=== PATIENT | male | born 1945 ===

== ENCOUNTER 2017-09-30 13:20 | Inpatient (IN) | payer MEDICARE, OTHER ==
[2017-09-30] MEDS ORDERED: Sodium Chloride 0.9% 1,000 ML IV ONE ×2 (13:41→16:18)
[2017-09-30] MEDS ORDERED: Sodium Chloride 0.9% 1,000 ML ONE ×2 (13:59→16:56)
[2017-09-30 14:09] LABS: BASO % 0.1 % (0.0-2.0); HEMOGLOBIN 13.1 g/dL (12.0-18.0); LYMPH # 0.5 K/uL (1.0-4.3); LYMPH % 4.4 % (20.0-40.0); MEAN CELL VOLUME 66.9 fL (80.0-94.0); MEAN CORPUSCULAR HEMOGLOBIN 21.8 pg (27.0-31.0); MEAN CORPUSCULAR HGB CONC 32.5 g/dL (33.0-37.0); MEAN PLATELET VOLUME 9.9 fL (7.2-11.7); MONO # 0.9 K/uL (0.0-0.8); MONO % 7.4 % (0.0-10.0); NEUT # 10.2 K/uL (1.8-7.0); NEUT % 88.1 % (50.0-75.0); PLATELET COUNT 152 K/uL (130-400); RBC 6.02 Mil/uL (4.40-5.90); RED CELL DISTRIBUTION WIDTH 16.7 % (11.5-14.5); WHITE BLOOD COUNT 11.6 K/uL (4.8-10.8)
--- NOTE | 2017-09-30 14:11 | RAD ---
HISTORY: SOB COMPARISON: No prior. TECHNIQUE: Chest PA and lateral FINDINGS: LUNGS: No active pulmonary disease. PLEURA: No significant pleural effusion identified. No pneumothorax apparent. CARDIOVASCULAR: Normal. OSSEOUS STRUCTURES: No significant abnormalities. VISUALIZED UPPER ABDOMEN: Normal. OTHER FINDINGS: None. IMPRESSION: No active disease.
[2017-09-30 14:27] LABS: ALB/GLOB RATIO 1.2 (1.0-2.1); ALT/SGPT 34 U/L (21-72); AST/SGOT 31 U/L (17-59); BLOOD UREA NITROGEN 32 mg/dL (9-20); CALCIUM 9.4 mg/dl (8.6-10.4); GFR AFRICAN-AMERICAN > 60; GFR NON-AFRICAN AMERICAN 50; LIPASE 100 U/L (23-300)
[2017-09-30 14:37] LABS: CK-MB 0.99 ng/mL (0.0-3.38)
[2017-09-30 14:50] LABS: BANDS 5 % (0-2); LYMPHOCYTE 8 % (20-40); MONOCYTE 5 % (0-10); NEUTROPHIL 82 % (50-75); TOTAL CELLS COUNTED 100
[2017-09-30 14:51] LABS: ANISOCYTOSIS SLIGHT; PLATELET ESTIMATE NORMAL (NORMAL)
--- NOTE | 2017-09-30 14:51 | C.PDOC ---
History Of Present Illness 72 y/o male presents to ED with c/o fever for "few days" developed after having Cystoscopy. Patient reports he is compliant with medication and denies nausea, vomiting, dysuria or any other complaints at this time. Time Seen by Provider: 09/30/17 13:34 Chief Complaint (Nursing): Fever History Per: Patient History/Exam Limitations: no limitations Onset/Duration Of Symptoms: Days Current Symptoms Are (Timing): Still Present Sick Contacts (Context): None Associated Symptoms: Fever, Chills Severity: Mild Recent travel outside of the [place]: No Past Medical History Reviewed: Historical Data, Nursing Documentation, Vital Signs Vital Signs: Last Vital Signs Temp 101.7 F H 09/30/17 15:48 Pulse 93 H 09/30/17 15:48 Resp 18 09/30/17 15:48 BP 174/85 H 09/30/17 15:48 Pulse Ox 96 09/30/17 16:06 - Medical History PMH: Benign Prostatic Hyperplasia, HTN, Hyperlipidemia Surgical History: No Surg Hx - [facility] Procedures COLONOSCOPY (07/25/13) Family History: States: No Known Family Hx - Social History Hx Tobacco Use: No Hx Alcohol Use: Yes (socially) Hx Substance Use: No - Immunization History Hx Tetanus Toxoid Vaccination: No Hx Influenza Vaccination: No Hx Pneumococcal Vaccination: No Review Of Systems Constitutional: Positive for: Fever. Negative for: Chills Cardiovascular: Negative for: Chest Pain Respiratory: Negative for: Shortness of Breath Gastrointestinal: Negative for: Nausea, Vomiting Skin: Negative for: Rash Physical Exam - Physical Exam Appears: Non-toxic, No Acute Distress Skin: Warm, Dry, No Rash Head: Atraumatic, Normacephalic Eye(s): bilateral: Normal Inspection Oral Mucosa: Moist Neck: Normal ROM, Supple Cardiovascular: Rhythm Regular Respiratory: Normal Breath Sounds, No Rales, No Rhonchi, No Wheezing Gastrointestinal/Abdominal: Soft, No Tenderness, No Guarding, No Rebound Back: No CVA Tenderness Neurological/Psych: Oriented x3, Normal Speech, Normal Cognition Gait: Unable To Assess ED Course And Treatment - Laboratory Results Result Diagrams: 09/30/17 14:03 09/30/17 14:03 Lab Interpretation: No Acute Changes ECG: Interpreted By Ga ECG Rhythm: Sinus Rhythm ECG Interpretation: Normal Rate From EC O2 Sat by Pulse Oximetry: 96 (RA) Pulse Ox Interpretation: Normal - Radiology CXR: Interpreted by Me CXR Interpretation: Yes: No Acute Disease Progress Note: Treated with tylenol for fever. IVF NSS and rocephin. Treated with motrin. On re-evaluation abdomen soft. Treated with additional NSS Reassessment Condition: Improved - Physician Consult Information Physician Contacted: Sharon Humphrey Outcome Of Conversation: admit Disposition Discussed With Dr.: Sharon Humphrey Doctor Will See Patient In The: Hospital - Disposition Disposition: HOSPITALIZED Disposition Time: 16:00 Condition: STABLE - Clinical Impression Clinical Impression: Fever, Influenza-like illness, Complicated urinary tract infection - PA / [employer] / Resident Statement MD/DO has reviewed & agrees with the documentation as recorded. - Scribe Statement The provider has reviewed the documentation as recorded by the Mimiibjoss Obrien All medical record entries made by the Mimiibjoss were at my direction and personally dictated by me. I have reviewed the chart and agree that the record accurately reflects my personal performance of the history, physical exam, medical decision making, and the department course for this patient. I have also personally directed, reviewed, and agree with the discharge instructions and disposition. Decision To Admit - Pt Status Changed To: Hospital Disposition Of: Inpatient - Admit Certification Admit to Inpatient:: After my assessment, the patient will require hospitalization for at least two midnights. This is because of the severity of symptoms shown, intensity of services needed, and/or the medical risk in this patient being treated as an outpatient. - InPatient: Physician Admission Certification:: UTI. Fever. Flu - . Bed Request Type: Regular Admitting Physician: Sharon Humphrey Patient Diagnosis: Fever, Influenza-like illness, Complicated urinary tract infection
[2017-09-30 14:57] LABS: HYPOCHROMIC SLIGHT; MICROCYTOSIS SLIGHT
[2017-09-30 15:27] LABS: SQUAMOUS EPITHIAL < 1 /hpf (0-5); URINE BACTERIA OCC (<OCC); URINE BILIRUBIN NEGATIVE (NEGATIVE); URINE BLOOD 2+ (NEGATIVE); URINE CLARITY Hazy (Clear); URINE COLOR Yellow (YELLOW); URINE GLUCOSE (UA) 1+ mg/dL (Normal); URINE LEUKOCYTE ESTERASE 3+ Leu/uL (Negative); URINE PROTEIN 2+ mg/dL (NEGATIVE); URINE UROBILINOGEN NORMAL mg/dL (0.2-1.0)
[2017-09-30] MEDS ORDERED: cefTRIAXone IV 1 gm in Dextros 50 ML IV ONE (15:30)
[2017-09-30] MEDS ORDERED: cefTRIAXone IV 1 gm in Dextros 50 ML IVPB ONE (16:20)
--- NOTE | 2017-09-30 19:24 | CP.PCM.HP ---
Past Patient History - Tetanus Immunizations Tetanus Immunization: Unknown - Past Medical History & Family History Past Medical History?: Yes - Past Social History Smoking Status: Never Smoked - CARDIAC Hx Hypertension: Yes - PULMONARY Hx Respiratory Disorders: No - NEUROLOGICAL Hx Neurological Disorder: No - HEENT Hx HEENT Problems: Yes Hx Cataracts: Yes (left eye) - RENAL Hx Chronic Kidney Disease: No - ENDOCRINE/METABOLIC Hx Endocrine Disorders: Yes (DM type II) - HEMATOLOGICAL/ONCOLOGICAL Hx Blood Disorders: No - INTEGUMENTARY Hx Dermatological Problems: No - MUSCULOSKELETAL/RHEUMATOLOGICAL Hx Musculoskeletal Disorders: Yes (osteoarthritis) Hx Falls: No - GASTROINTESTINAL Hx Gastrointestinal Disorders: No - GENITOURINARY/GYNECOLOGICAL Hx Genitourinary Disorders: Yes (BPH) Hx Prostate Problems: Yes - PSYCHIATRIC Hx Substance Use: No - SURGICAL HISTORY Hx Surgeries: Yes Hx Cataract Extraction: Yes (LEFT IOL) Other/Comment: PROSTATE BX NEG - ANESTHESIA Hx Anesthesia: Yes Hx Anesthesia Reactions: No Hx Malignant Hyperthermia: No Meds Allergies/Adverse Reactions: Allergies Allergy/AdvReac Type Severity Reaction Status Date / Time No Known Allergies Allergy Verified 07/25/13 10:26 Physical Exam - Constitutional Appears: Well - Head Exam Head Exam: ATRAUMATIC, NORMAL INSPECTION, NORMOCEPHALIC - Eye Exam Eye Exam: EOMI, Normal appearance, PERRL Pupil Exam: NORMAL ACCOMODATION, PERRL - ENT Exam ENT Exam: Mucous Membranes Moist, Normal Exam - Neck Exam Neck exam: Positive for: Normal Inspection - Respiratory Exam Respiratory Exam: Decreased Breath Sounds - Cardiovascular Exam Cardiovascular Exam: REGULAR RHYTHM, +S1, +S2 - GI/Abdominal Exam GI & Abdominal Exam: Diminished Bowel Sounds, Soft - Rectal Exam Rectal Exam: Deferred Results - Vital Signs Recent Vital Signs: Last Vital Signs Temp 99.1 F 09/30/17 18:31 Pulse 88 09/30/17 18:31 Resp 20 09/30/17 18:31 BP 167/80 H 09/30/17 18:31 Pulse Ox 98 09/30/17 18:31 - Labs Result Diagrams: 09/30/17 14:03 09/30/17 14:03 Labs: Laboratory Results - last 24 hr 09/30/17 09/30/17 09/30/17 13:44 14:03 14:03 WBC 11.6 H D RBC 6.02 H Hgb 13.1 Hct 40.3 MCV 66.9 L MCH 21.8 L MCHC 32.5 L RDW 16.7 H Plt Count 152 MPV 9.9 Neut % (Auto) 88.1 H Lymph % (Auto) 4.4 L [place] % (Auto) 7.4 Eos % (Auto) 0.0 Baso % (Auto) 0.1 Neut # (Auto) 10.2 H Lymph # (Auto) 0.5 L [place] # (Auto) 0.9 H Eos # (Auto) 0.0 Baso # (Auto) 0.0 Neutrophils % (Manual) 82 H Band Neutrophils % 5 H Lymphocytes % (Manual) 8 L Monocytes % (Manual) 5 Platelet Estimate Normal Hypochromasia (manual) Slight Anisocytosis (manual) Slight Microcytosis (manual) Slight Sodium Potassium Chloride Carbon Dioxide Anion Gap BUN Creatinine Est GFR ( Amer) Est GFR (Non-Af Amer) POC Glucose (mg/dL) 220 H Random Glucose Lactic Acid Calcium Total Bilirubin AST ALT Alkaline Phosphatase CK-MB (Mass) Troponin I Total Protein Albumin Globulin Albumin/Globulin Ratio Lipase Urine Color Urine Clarity Urine pH Ur Specific [place] Urine Protein Urine Glucose (UA) Urine Ketones Urine Blood Urine Nitrate Urine Bilirubin Urine Urobilinogen Ur Leukocyte Esterase Urine WBC (Auto) Urine RBC (Auto) Ur Squamous Epith Cells Urine Bacteria Influenza Typ A,B (EIA) Pos for influenza a H 09/30/17 09/30/17 09/30/17 14:03 14:03 15:17 WBC RBC Hgb Hct MCV MCH MCHC RDW Plt Count MPV Neut % (Auto) Lymph % (Auto) [place] % (Auto) Eos % (Auto) Baso % (Auto) Neut # (Auto) Lymph # (Auto) [place] # (Auto) Eos # (Auto) Baso # (Auto) Neutrophils % (Manual) Band Neutrophils % Lymphocytes % (Manual) Monocytes % (Manual) Platelet Estimate Hypochromasia (manual) Anisocytosis (manual) Microcytosis (manual) Sodium 140 Potassium 3.3 L Chloride 101 Carbon Dioxide 25 Anion Gap 17 BUN 32 H Creatinine 1.4 Est GFR ( Amer) > 60 Est GFR (Non-Af Amer) 50 POC Glucose (mg/dL) Random Glucose 224 H Lactic Acid 2.1 Calcium 9.4 Total Bilirubin 1.2 AST 31 ALT 34 Alkaline Phosphatase 86 CK-MB (Mass) 0.99 Troponin I 0.0410 Total Protein 7.4 Albumin 4.0 Globulin 3.4 Albumin/Globulin Ratio 1.2 Lipase 100 Urine Color Yellow Urine Clarity Hazy Urine pH 5.0 Ur Specific [place] 1.016 Urine Protein 2+ H Urine Glucose (UA) 1+ H Urine Ketones Negative Urine Blood 2+ H Urine Nitrate Negative Urine Bilirubin Negative Urine Urobilinogen Normal Ur Leukocyte Esterase 3+ H Urine WBC (Auto) 567 H Urine RBC (Auto) 42 H Ur Squamous Epith Cells < 1 Urine Bacteria Occ H Influenza Typ A,B (EIA)
[2017-09-30] MEDS ORDERED: cefTRIAXone IV 1 gm in Dextros 50 ML IVPB SCH (22:00)
[2017-09-30] MEDS ORDERED: Pneumococcal 23-Valent Vaccine IM ONE (23:25)
[2017-09-30] MEDS: Azithromycin 500 MG in Sodium Chloride 0.9% 250 ML IVPB SCH (23:26)
[2017-10-01] MEDS ORDERED: Potassium Chloride 20 mEq ER Tab PO STA (08:44)
--- NOTE | 2017-10-01 08:44 | CP.PCM.PN ---
Subjective - Date & Time of Evaluation Date of Evaluation: 10/01/17 Time of Evaluation: 08:00 - Subjective Subjective: PGY med progress note for Dr. Jonna Humphrey: Patient seen and examined at bedside this morning. He reports having fever and chills. He states that he still doesn't feel "well" but feels slightly better than yesterday. Denies SOB, chest pain, or muscle aches. He is eating well and having normal bowel movements. He admits to dysuria, frequent urination, and urinary incontinence. No new complaints today. Objective - Vital Signs/Intake and Output Vital Signs (last 24 hours): Temp Pulse Resp BP Pulse Ox 99.9 F H 81 20 157/70 H 96 10/01/17 07:00 10/01/17 07:00 10/01/17 07:00 10/01/17 07:00 10/01/17 07:00 - Medications Medications: Current Medications Colchicine (Colocrys) 0.6 mg PO DAILY [facility] Ergocalciferol (Drisdol 50,000 Intl Units Cap) 1 cap PO QWK [facility] Ferrous Sulfate (Feosol) 325 mg PO DAILY [facility] Finasteride (Proscar) 1 mg PO DAILY [facility] Glipizide (Glucotrol) 5 mg PO DAILY [facility] Heparin Sodium (Porcine) (Heparin) 5,000 units SC Q12 [facility] Home Med (Febuxostat [Uloric]) 40 mg PO DAILY [facility] Ceftriaxone Sodium (Rocephin Iv 1 Gm Duplex) 50 mls @ 100 mls/hr IVPB Q24H [facility] PRN Reason: Protocol Last Admin: 09/30/17 23:02 Dose: 100 mls/hr Sodium Chloride (Sodium Chloride 0.9%) 1,000 mls @ 75 mls/hr IV .[id number] [facility] Azithromycin 500 mg/ Sodium (Chloride) 250 mls @ 250 mls/hr IVPB Q24H [facility] PRN Reason: Protocol Last Admin: 09/30/17 23:26 Dose: 250 mls/hr Losartan Potassium (Cozaar) 100 mg PO DAILY [facility] Nebivolol (Bystolic) 20 mg PO DAILY [facility] [id number] Ethyl Esters (Lovaza) 1 gm PO DAILY [facility] Oseltamivir Phosphate (Tamiflu Cap) 75 mg PO BID [facility] PRN Reason: Protocol Stop: 10/06/17 10:01 Oxybutynin Chloride (Ditropan Tab) 5 mg PO DAILY [facility] Pantoprazole Sodium (Protonix Inj) 40 mg IVP DAILY [facility] Primidone (Mysoline) 50 mg PO DAILY [facility] Rosuvastatin Calcium (Crestor) 6 mg PO HS [facility] Last Admin: 09/30/17 23:26 Dose: 6 mg Tamsulosin HCl (Flomax) 0.4 mg PO DAILY [facility] - Labs Labs: 09/30/17 14:03 09/30/17 14:03 - Constitutional Appears: Non-toxic, No Acute Distress - Head Exam Head Exam: ATRAUMATIC, NORMAL INSPECTION - Eye Exam Eye Exam: EOMI - ENT Exam ENT Exam: Mucous Membranes Moist - Respiratory Exam Respiratory Exam: Decreased Breath Sounds, Clear to Ausculation Bilateral, NORMAL BREATHING PATTERN. absent: Respiratory Distress - Cardiovascular Exam Cardiovascular Exam: REGULAR RHYTHM, +S1, +S2 - GI/Abdominal Exam GI & Abdominal Exam: Soft. absent: Distended, Firm, Guarding, Tenderness - Extremities Exam Extremities Exam: Normal Inspection - Back Exam Back Exam: NORMAL INSPECTION - Neurological Exam Neurological Exam: Alert, Awake, Oriented x3 - Psychiatric Exam Psychiatric exam: Normal Affect, Normal Mood - Skin Skin Exam: Intact, Normal Color Assessment and Plan - Assessment and Plan (Free Text) Assessment: UTI Rocephin 1gram IVPB Q daily WBC 13.7, 19 bands, temp 99.9 Lactic Acid 2.1 UA 2+ protein, 1+ glucose, 2+ blood, 3+ LE, 567 WBC, 42 RBC f/u urine culture blood cultures 09/29 - no growth for [address] Perez, ID, consulted help appreciated Dr. Pau Walker, urology, consulted help appreciated Influenza, positive Rocephin 1gram IVPB Q daily Azithromycin 500mg IVPB Q daily Tamiflu 75mg PO BID - ends 10/06 NS at 75 cc/hour Chest X ray - no active disease Hypomagnesia Mag 1.4 Replaced BPH Flomax 0.4mg PO daily DM Glipizide 5mg PO daily accuchecks ACHS ISS Hypoglycemia protocol CKD Ergocalciferol 1 cap PO weekly (last dose 10/01) Proscar 1mg PO daily Anemia likely due to chronic disease/fe def Ferrous Sulfate 235mg PO daily HTN Bistolic 20mg PO daily Losartan 100mg PO daily HLD Lovaza 1gram PO daily Crestor 6mg PO HS Gout Colocrys 0.6mg PO daily Prophylactic Measures Protonix 40mg IVP daily Heart healthy diet SCDs Heparin 5000 U SC Q12 All management and orders per Dr. Jonna Humphrey.
[2017-10-01] MEDS ORDERED: Glucagon Recombinant 1 mg Inj IM PRN (08:47)
[2017-10-01] MEDS ORDERED: Dextrose 50% SYRINGE Inj (50 ml) IV PRN (08:47)
[2017-10-01] MEDS: (Novolin R) Insulin Human Regular 100 units/ml vial SC SCH ×4 (09:10→22:02)
[2017-10-01] MEDS: Omega-3-Acid Ethyl Esters 1 GM Cap PO SCH (09:11)
[2017-10-01] MEDS: Sodium Chloride 0.9% 1,000 ML IV SCH (09:20)
[2017-10-01] MEDS ORDERED: Ergocalciferol 50,000 Intl Units Cap PO SCH (10:00)
[2017-10-01] MEDS ORDERED: Home Med 1 UNIT (Febuxostat [Uloric] 40 MG) PO SCH (10:00)
[2017-10-01] MEDS ORDERED: Azithromycin 500 MG in Sodium Chloride 0.9% 250 ML IVPB SCH (10:00)
[2017-10-01 11:28] LABS: BASO # 0.1 K/uL (0.0-0.2); BASO % 0.4 % (0.0-2.0); HEMOGLOBIN 12.5 g/dL (12.0-18.0); LYMPH # 0.9 K/uL (1.0-4.3); LYMPH % 6.4 % (20.0-40.0); MEAN CELL VOLUME 67.7 fL (80.0-94.0); MEAN CORPUSCULAR HEMOGLOBIN 21.8 pg (27.0-31.0); MEAN CORPUSCULAR HGB CONC 32.2 g/dL (33.0-37.0); MEAN PLATELET VOLUME 9.5 fL (7.2-11.7); MONO # 0.5 K/uL (0.0-0.8); MONO % 3.8 % (0.0-10.0); NEUT # 12.3 K/uL (1.8-7.0); NEUT % 89.4 % (50.0-75.0); RBC 5.72 Mil/uL (4.40-5.90); RED CELL DISTRIBUTION WIDTH 16.8 % (11.5-14.5); WHITE BLOOD COUNT 13.7 K/uL (4.8-10.8)
[2017-10-01 11:38] LABS: PLATELET COUNT 98 K/uL (130-400)
[2017-10-01 11:40] LABS: ALBUMIN 3.2 g/dL (3.5-5.0); ALT/SGPT 32 U/L (21-72); AST/SGOT 32 U/L (17-59); BLOOD UREA NITROGEN 28 mg/dL (9-20); CALCIUM 7.9 mg/dl (8.6-10.4); GFR AFRICAN-AMERICAN > 60; GFR NON-AFRICAN AMERICAN 54
[2017-10-01 12:15] LABS: ANISOCYTOSIS SLIGHT; BANDS 19 % (0-2); LYMPHOCYTE 10 % (20-40); METAMYELOCYTE 3 % (0-0); MONOCYTE 5 % (0-10); NEUTROPHIL 63 % (50-75); OVALOCYTES SLIGHT; PLATELET ESTIMATE DECREASED (NORMAL); POIKILOCYTOSIS SLIGHT; TOTAL CELLS COUNTED 100
[2017-10-01] MEDS: Magnesium Sulfate 1 gm in D5W 1 GM/100 ML BAG IVPB SCH ×2 (13:00→13:32)
--- NOTE | 2017-10-01 18:10 | CP.PCM.CON ---
History of Present Illness - History of Present Illness History of Present Illness: 72 y/o male presents to ED with c/o fever for "few days" developed after having Cystoscopy. Patient reports he is compliant with medication and denies nausea, vomiting, dysuria or any other complaints at this time. found to have the flu c/o pain in right testicle with swelling - Medical History PMH: Benign Prostatic Hyperplasia, HTN, Hyperlipidemia Surgical History: No Surg Hx Review of Systems - Constitutional Constitutional: As Per HPI - EENT Eyes: absent: As Per HPI, Blind Spots, Blurred Vision, Change in Vision, Decreased Night Vision, Diplopia, Discharge, Dry Eye, Exophthalmos, Floaters, Irritation, Itchy Eyes, Loss of Peripheral Vision, Pain, Photophobia, Requires Corrective Lenses, Sees Flashes, Spots in Vision, Tunnel Vision, Other Visual Disturbances, Loss of Vision, Other Ears: absent: As Per HPI, Decreased Hearing, Ear Discharge, Ear Pain, Tinnitus, Abnormal Hearing, Disequilibrium, Dizziness, Other Nose/Mouth/Throat: absent: As Per HPI, Epistaxis, Nasal Congestion, Nasal Discharge, Nasal Obstruction, Nasal Trauma, Nose Pain, Post Nasal Drip, Sinus Pain, Sinus Pressure, Bleeding Gums, Change in Voice, Dental Pain, Dry Mouth, Dysphagia, Halitosis, Hoarsness, Lip Swelling, Mouth Lesions, Mouth Pain, Odynophagia, Sore Throat, Throat Swelling, Tongue Swelling, Facial Pain, Neck Pain, Neck Mass, Other - Cardiovascular Cardiovascular: absent: As Per HPI, Acrocyanosis, Chest Pain, Chest Pain at Rest , Chest Pain with Activity, Claudication, Diaphoresis, Dyspnea, Dyspnea on Exertion, Edema, Irregular Heart Rhythm, Pain Radiating to Arm/Neck/Jaw, Leg Edema, Leg Ulcers, Lightheadedness, Orthopnea, Palpitations, Paroxysmal Nocturnal Dyspnea, Pedal Edema, Radiating Pain, Rapid Heart Rate, Slow Heart Rate, Syncope, Other - Respiratory Respiratory: absent: As Per HPI, Cough, Dyspnea, Hemoptysis, Dyspnea on Exertion , Wheezing, Snoring, Stridor, Pain on Inspiration, Chest Congestion, Excessive Mucous Production, Change in Mucous Color, Pain with Coughing, Other - Gastrointestinal Gastrointestinal: absent: As Per HPI, Abdominal Pain, Belching, Bloating, Change in Bowel Habits, Change in Stool Character, Coffee Ground Emesis, Constipation, Cramping, Diarrhea, Dyspepsia, Dysphagia, Early Satiety, Excessive Flatus, Fecal Incontinence, Heartburn, Hematemesis, Hematochezia, Loose Stools, Melena, Nausea, Odynophagia, Temesmus, Vomiting, Other - Genitourinary Genitourinary: As Per HPI - Musculoskeletal Musculoskeletal: absent: As Per HPI, Abnormal Gait, Arthralgias, Atrophy, Back Pain, Deformity, Joint Swelling, Limited Range of Motion, Loss of Height, Muscle Cramps, Muscle Weakness, Myalgias, Neck Pain, Numbness, Radiating Pain into Limb, Stiffness, Tingling, Other - Integumentary Integumentary: absent: As Per HPI, Acne, Alopecia, Bleeding Lesions, Change in Hair, Change in Nails, Change in Pigmentation, Changing Lesions, Dry Skin, Erythema, Furuncle, Hirsutism, Lesions, New Lesions, Non-Healing Lesions, Photosensitivity, Pruritus, Rash, Skin Pain, Skin Ulcer, Sores, Striae, Swelling , Unusual Bruising, Wounds, Jaundice, Other - Neurological Neurological: absent: As Per HPI, Abnormal Gait, Abnormal Hearing, Abnormal Movements, Abnormal Speech, Behavioral Changes, Burning Sensations, Confusion, Convulsions, Disequilibrium, Dizziness, Numbness, Focal Weakness, Frequent Falls , Headaches, Lack of Coordination, Loss of Vision, Memory Loss, Paresthesias, Radicular Pain, Restless Legs, Sensory Deficit, Syncope, Tingling, Tremor, Vertigo, Weakness, Other Visual Disturbances, Other - Psychiatric Psychiatric: absent: As Per HPI, Abnormal Sleep Pattern, Anhedonia, Anxiety, Auditory Hallucinations, Behavioral Changes, Change in Appetite, Change in Libido, Confusion, Depression, Difficulty Concentrating, Hallucinations, Homicidal Ideation, Hopelessness, Irritability, Memory Loss, Mood Swings, Panic Attacks, Paranoia, Suicidal Ideation, Visual Hallucinations, Tactile Hallucinations, Other - Endocrine Endocrine: absent: As Per HPI, Change in Body Appearance, Change in Libido, Cold Intolorance, Deepening of Voice, Excessive Sweating, Fatigue, Flushing, Heat Intolorance, Increase in Ring/Shoe/Hat Size, Palpitations, Polydipsia, Polyphagia, Polyuria, Other - Hematologic/Lymphatic Hematologic: absent: As Per HPI, Easy Bleeding, Easy Bruising, Lymphadenopathy, Other Past Patient History - Tetanus Immunizations Tetanus Immunization: Unknown - Past Medical History & Family History Past Medical History?: Yes - Past Social History Smoking Status: Never Smoked - CARDIAC Hx Hypertension: Yes - PULMONARY Hx Respiratory Disorders: No - NEUROLOGICAL Hx Neurological Disorder: No - HEENT Hx HEENT Problems: Yes Hx Cataracts: Yes (left eye) - RENAL Hx Chronic Kidney Disease: No - ENDOCRINE/METABOLIC Hx Endocrine Disorders: Yes (DM type II) - HEMATOLOGICAL/ONCOLOGICAL Hx Blood Disorders: No - INTEGUMENTARY Hx Dermatological Problems: No - MUSCULOSKELETAL/RHEUMATOLOGICAL Hx Musculoskeletal Disorders: Yes (osteoarthritis) Hx Falls: No - GASTROINTESTINAL Hx Gastrointestinal Disorders: No - GENITOURINARY/GYNECOLOGICAL Hx Genitourinary Disorders: Yes (BPH) Hx Prostate Problems: Yes - PSYCHIATRIC Hx Substance Use: No - SURGICAL HISTORY Hx Surgeries: Yes Hx Cataract Extraction: Yes (LEFT IOL) Other/Comment: PROSTATE BX NEG - ANESTHESIA Hx Anesthesia: Yes Hx Anesthesia Reactions: No Hx Malignant Hyperthermia: No Meds Allergies/Adverse Reactions: Allergies Allergy/AdvReac Type Severity Reaction Status Date / Time No Known Allergies Allergy Verified 07/25/13 10:26 - Medications Medications: Current Medications Acetaminophen (Tylenol 325mg Tab) 650 mg PO Q6 PRN PRN Reason: Fever >100.4 F Last Admin: 10/01/17 16:19 Dose: 650 mg Colchicine (Colocrys) 0.6 mg PO DAILY [facility] Last Admin: 10/01/17 09:12 Dose: 0.6 mg Dextrose (Dextrose 50% Inj) 0 ml IV STAT PRN; Protocol PRN Reason: Hypoglycemia Protocol Dextrose (Glutose 15) 15 gm PO ONCE PRN; Protocol PRN Reason: Hypoglycemia Protocol Ergocalciferol (Drisdol 50,000 Intl Units Cap) 1 cap PO QWK [facility] Last Admin: 10/01/17 09:11 Dose: 1 cap Ferrous Sulfate (Feosol) 325 mg PO DAILY [facility] Last Admin: 10/01/17 09:12 Dose: 325 mg Finasteride (Proscar) 5 mg PO DAILY [facility] Last Admin: 10/01/17 09:18 Dose: 5 mg Glipizide (Glucotrol) 5 mg PO DAILY [facility] Last Admin: 10/01/17 09:11 Dose: 5 mg Glucagon (Glucagen Diagnostic Kit) 1 mg IM STAT PRN; Protocol PRN Reason: Hypoglycemia Protocol Heparin Sodium (Porcine) (Heparin) 5,000 units SC Q12 [facility] Last Admin: 10/01/17 09:18 Dose: 5,000 units Home Med (Febuxostat [Uloric]) 40 mg PO DAILY [facility] Ceftriaxone Sodium (Rocephin Iv 1 Gm Duplex) 50 mls @ 100 mls/hr IVPB Q24H [facility] PRN Reason: Protocol Last Admin: 09/30/17 23:02 Dose: 100 mls/hr Sodium Chloride (Sodium Chloride 0.9%) 1,000 mls @ 75 mls/hr IV .[id number] [facility] Last Admin: 10/01/17 09:20 Dose: 75 mls/hr Azithromycin 500 mg/ Sodium (Chloride) 250 mls @ 250 mls/hr IVPB Q24H [facility] PRN Reason: Protocol Last Admin: 09/30/17 23:26 Dose: 250 mls/hr Dextrose (Dextrose 5% In Water 1000 Ml) 1,000 mls @ 0 mls/hr IV .Q0M PRN; Protocol; Per Protocol PRN Reason: Hypoglycemia Protocol Insulin Human Regular (Novolin R) 0 unit SC ACHS [facility] PRN Reason: Protocol Last Admin: 10/01/17 17:48 Dose: 2 unit Losartan Potassium (Cozaar) 100 mg PO DAILY [facility] Last Admin: 10/01/17 09:12 Dose: 100 mg Nebivolol (Bystolic) 20 mg PO DAILY [facility] Last Admin: 10/01/17 09:12 Dose: 20 mg Xifti-0-[id number] Ethyl Esters (Lovaza) 1 gm PO DAILY [facility] Last Admin: 10/01/17 09:11 Dose: 1 gm Oseltamivir Phosphate (Tamiflu Cap) 75 mg PO BID [facility] PRN Reason: Protocol Stop: 10/06/17 10:01 Last Admin: 10/01/17 17:49 Dose: 75 mg Oxybutynin Chloride (Ditropan Tab) 5 mg PO DAILY [facility] Last Admin: 10/01/17 09:12 Dose: 5 mg Pantoprazole Sodium (Protonix Inj) 40 mg IVP DAILY [facility] Last Admin: 10/01/17 09:08 Dose: 40 mg Primidone (Mysoline) 50 mg PO DAILY [facility] Last Admin: 10/01/17 09:12 Dose: 50 mg Rosuvastatin Calcium (Crestor) 6 mg PO HS [facility] Last Admin: 09/30/17 23:26 Dose: 6 mg Tamsulosin HCl (Flomax) 0.4 mg PO DAILY [facility] Last Admin: 10/01/17 09:12 Dose: 0.4 mg Physical Exam - Constitutional Appears: Non-toxic, Chronically Ill - Head Exam Head Exam: ATRAUMATIC, NORMAL INSPECTION, NORMOCEPHALIC - Eye Exam Eye Exam: EOMI, PERRL, Scleral icterus - ENT Exam ENT Exam: Mucous Membranes Dry, Normal External Ear Exam, Normal Oropharynx - Neck Exam Neck exam: Negative for: Lymphadenopathy - Respiratory Exam Respiratory Exam: Decreased Breath Sounds, Rhonchi - Cardiovascular Exam Cardiovascular Exam: REGULAR RHYTHM, +S1, +S2 - GI/Abdominal Exam GI & Abdominal Exam: Diminished Bowel Sounds, Distended, Soft. absent: Tenderness - Rectal Exam Rectal Exam: Deferred - Exam Exam: Scrotal Swelling, Testicular Tenderness. absent: Uretheral Discharge, Bladder Distension - Extremities Exam Extremities exam: Negative for: pedal edema - Back Exam Back exam: absent: CVA tenderness (L), CVA tenderness (R) - Neurological Exam Neurological exam: Alert, CN II-XII Intact, Oriented x3, Reflexes Normal Results - Vital Signs Recent Vital Signs: Last Vital Signs Temp 101.8 F H 10/01/17 16:19 Pulse 68 10/01/17 16:14 Resp 20 10/01/17 16:14 BP 155/74 H 10/01/17 16:14 Pulse Ox 96 10/01/17 16:14 - Labs Result Diagrams: 10/01/17 11:21 10/01/17 11:21 Labs: Laboratory Results - last 24 hr 10/01/17 10/01/17 10/01/17 06:42 11:12 11:21 WBC 13.7 H RBC 5.72 Hgb 12.5 Hct 38.7 MCV 67.7 L MCH 21.8 L MCHC 32.2 L RDW 16.8 H Plt Count 98 L D MPV 9.5 Neut % (Auto) 89.4 H Lymph % (Auto) 6.4 L [place]house % (Auto) 3.8 Eos % (Auto) 0.0 Baso % (Auto) 0.4 Neut # (Auto) 12.3 H Lymph # (Auto) 0.9 L [place] # (Auto) 0.5 Eos # (Auto) 0.0 Baso # (Auto) 0.1 Neutrophils % (Manual) 63 Band Neutrophils % 19 H* Lymphocytes % (Manual) 10 L Monocytes % (Manual) 5 Metamyelocytes % 3 H Platelet Estimate Decreased L Poikilocytosis (manual Slight Anisocytosis (manual) Slight Ovalocytes Slight Sodium Potassium Chloride Carbon Dioxide Anion Gap BUN Creatinine Est GFR ( Amer) Est GFR (Non-Af Amer) POC Glucose (mg/dL) 277 H 326 H Random Glucose Calcium Phosphorus Magnesium Total Bilirubin AST ALT Alkaline Phosphatase Total Protein Albumin Globulin Albumin/Globulin Ratio 10/01/17 10/01/17 11:21 16:51 WBC RBC Hgb Hct MCV MCH MCHC RDW Plt Count MPV Neut % (Auto) Lymph % (Auto) [place] % (Auto) Eos % (Auto) Baso % (Auto) Neut # (Auto) Lymph # (Auto) [place] # (Auto) Eos # (Auto) Baso # (Auto) Neutrophils % (Manual) Band Neutrophils % Lymphocytes % (Manual) Monocytes % (Manual) Metamyelocytes % Platelet Estimate Poikilocytosis (manual Anisocytosis (manual) Ovalocytes Sodium 136 Potassium 3.7 Chloride 102 Carbon Dioxide 21 L Anion Gap 16 BUN 28 H Creatinine 1.3 Est GFR ( Amer) > 60 Est GFR (Non-Af Amer) 54 POC Glucose (mg/dL) 183 H Random Glucose 380 H Calcium 7.9 L Phosphorus 1.4 L Magnesium 1.4 L Total Bilirubin 0.7 AST 32 ALT 32 Alkaline Phosphatase 75 Total Protein 6.3 Albumin 3.2 L Globulin 3.1 Albumin/Globulin Ratio 1.0 Assessment & Plan (1) Complicated urinary tract infection Status: Acute (2) Fever Status: Acute (3) Influenza-like illness Status: Acute - Assessment and Plan (Free Text) Assessment: cont rx for flu and complicatted UTI await cultures add Merrem
--- NOTE | 2017-10-01 19:11 | CP.PCM.PN ---
Subjective - Date & Time of Evaluation Date of Evaluation: 10/01/17 Time of Evaluation: 10:00 - Subjective Subjective: clinically same Objective - Vital Signs/Intake and Output Vital Signs (last 24 hours): Temp Pulse Resp BP Pulse Ox 101.8 F H 68 20 155/74 H 96 10/01/17 16:19 10/01/17 16:14 10/01/17 16:14 10/01/17 16:14 10/01/17 16:14 Intake and Output: 10/01/17 10/02/17 18:59 06:59 Intake Total 887.5 Balance 887.5 - Medications Medications: Current Medications Acetaminophen (Tylenol 325mg Tab) 650 mg PO Q6 PRN PRN Reason: Fever >100.4 F Last Admin: 10/01/17 16:19 Dose: 650 mg Colchicine (Colocrys) 0.6 mg PO DAILY [facility] Last Admin: 10/01/17 09:12 Dose: 0.6 mg Dextrose (Dextrose 50% Inj) 0 ml IV STAT PRN; Protocol PRN Reason: Hypoglycemia Protocol Dextrose (Glutose 15) 15 gm PO ONCE PRN; Protocol PRN Reason: Hypoglycemia Protocol Ergocalciferol (Drisdol 50,000 Intl Units Cap) 1 cap PO QWK [facility] Last Admin: 10/01/17 09:11 Dose: 1 cap Ferrous Sulfate (Feosol) 325 mg PO DAILY [facility] Last Admin: 10/01/17 09:12 Dose: 325 mg Finasteride (Proscar) 5 mg PO DAILY [facility] Last Admin: 10/01/17 09:18 Dose: 5 mg Glipizide (Glucotrol) 5 mg PO DAILY [facility] Last Admin: 10/01/17 09:11 Dose: 5 mg Glucagon (Glucagen Diagnostic Kit) 1 mg IM STAT PRN; Protocol PRN Reason: Hypoglycemia Protocol Heparin Sodium (Porcine) (Heparin) 5,000 units SC Q12 [facility] Last Admin: 10/01/17 09:18 Dose: 5,000 units Home Med (Febuxostat [Uloric]) 40 mg PO DAILY [facility] Sodium Chloride (Sodium Chloride 0.9%) 1,000 mls @ 75 mls/hr IV .[id number] [facility] Last Admin: 10/01/17 09:20 Dose: 75 mls/hr Azithromycin 500 mg/ Sodium (Chloride) 250 mls @ 250 mls/hr IVPB Q24H [facility] PRN Reason: Protocol Last Admin: 09/30/17 23:26 Dose: 250 mls/hr Dextrose (Dextrose 5% In Water 1000 Ml) 1,000 mls @ 0 mls/hr IV .Q0M PRN; Protocol; Per Protocol PRN Reason: Hypoglycemia Protocol Meropenem 1 gm/ Sodium (Chloride) 100 mls @ 100 mls/hr IVPB Q8 [facility] PRN Reason: Protocol Insulin Human Regular (Novolin R) 0 unit SC ACHS [facility] PRN Reason: Protocol Last Admin: 10/01/17 17:48 Dose: 2 unit Losartan Potassium (Cozaar) 100 mg PO DAILY [facility] Last Admin: 10/01/17 09:12 Dose: 100 mg Nebivolol (Bystolic) 20 mg PO DAILY [facility] Last Admin: 10/01/17 09:12 Dose: 20 mg [id number] Ethyl Esters (Lovaza) 1 gm PO DAILY [facility] Last Admin: 10/01/17 09:11 Dose: 1 gm Oseltamivir Phosphate (Tamiflu Cap) 75 mg PO BID [facility] PRN Reason: Protocol Stop: 10/06/17 10:01 Last Admin: 10/01/17 17:49 Dose: 75 mg Oxybutynin Chloride (Ditropan Tab) 5 mg PO DAILY [facility] Last Admin: 10/01/17 09:12 Dose: 5 mg Pantoprazole Sodium (Protonix Inj) 40 mg IVP DAILY [facility] Last Admin: 10/01/17 09:08 Dose: 40 mg Primidone (Mysoline) 50 mg PO DAILY [facility] Last Admin: 10/01/17 09:12 Dose: 50 mg Rosuvastatin Calcium (Crestor) 6 mg PO HS [facility] Last Admin: 09/30/17 23:26 Dose: 6 mg Tamsulosin HCl (Flomax) 0.4 mg PO DAILY [facility] Last Admin: 10/01/17 09:12 Dose: 0.4 mg - Labs Labs: 10/01/17 11:21 10/01/17 11:21 - Constitutional Appears: Well - Head Exam Head Exam: ATRAUMATIC, NORMAL INSPECTION, NORMOCEPHALIC - Eye Exam Eye Exam: EOMI, Normal appearance, PERRL Pupil Exam: NORMAL ACCOMODATION, PERRL - ENT Exam ENT Exam: Mucous Membranes Moist, Normal Exam - Neck Exam Neck Exam: Full ROM, Normal Inspection. absent: Lymphadenopathy - Respiratory Exam Respiratory Exam: Decreased Breath Sounds - Cardiovascular Exam Cardiovascular Exam: REGULAR RHYTHM, +S1, +S2 - GI/Abdominal Exam GI & Abdominal Exam: Soft, Diminished Bowel Sounds - Rectal Exam Rectal Exam: Deferred
[2017-10-01] MEDS: Meropenem 1 GM in Sodium Chloride 0.9% 100 ML IVPB SCH (21:08)
[2017-10-01] MEDS: Azithromycin 500 MG in Sodium Chloride 0.9% 250 ML IVPB SCH (22:12)
[2017-10-02] MEDS: Sodium Chloride 0.9% 1,000 ML IV SCH ×2 (04:12→13:00)
[2017-10-02] MEDS: Meropenem 1 GM in Sodium Chloride 0.9% 100 ML IVPB SCH ×2 (05:20→13:37)
[2017-10-02] MEDS: (Novolin R) Insulin Human Regular 100 units/ml vial SC SCH ×4 (08:30→21:43)
[2017-10-02 08:37] LABS: BASO # 0.1 K/uL (0.0-0.2); BASO % 0.4 % (0.0-2.0); EOS % 0.1 % (0.0-4.0); HEMOGLOBIN 11.9 g/dL (12.0-18.0); LYMPH # 1.2 K/uL (1.0-4.3); LYMPH % 8.3 % (20.0-40.0); MEAN CELL VOLUME 66.6 fL (80.0-94.0); MEAN CORPUSCULAR HEMOGLOBIN 21.7 pg (27.0-31.0); MEAN CORPUSCULAR HGB CONC 32.6 g/dL (33.0-37.0); MEAN PLATELET VOLUME 9.1 fL (7.2-11.7); MONO # 0.7 K/uL (0.0-0.8); MONO % 4.8 % (0.0-10.0); NEUT # 12.7 K/uL (1.8-7.0); NEUT % 86.4 % (50.0-75.0); NRBC % 0.1 % (0.0-2.0); PLATELET COUNT 98 K/uL (130-400); RBC 5.49 Mil/uL (4.40-5.90); RED CELL DISTRIBUTION WIDTH 16.6 % (11.5-14.5); WHITE BLOOD COUNT 14.7 K/uL (4.8-10.8)
[2017-10-02 08:39] LABS: ALBUMIN 3.2 g/dL (3.5-5.0); CALCIUM 8.3 mg/dl (8.6-10.4)
--- NOTE | 2017-10-02 09:26 | CP.PCM.PN ---
Subjective - Date & Time of Evaluation Date of Evaluation: 10/02/17 Time of Evaluation: 09:11 - Subjective Subjective: Progress Note for Dr. Jonna Humphrey Patient seen and examined at bedside with son present. Patient had a fever of 100.6 overnight. Patient is tolerating diet well. He reports to have frequent urination with dark yellow urine but no burning sensation or pain. He further denies chills, headache, shortness of breath, chest pain, nausea, vomiting, or diarrhea. Objective - Vital Signs/Intake and Output Vital Signs (last 24 hours): Temp Pulse Resp BP Pulse Ox 98.6 F 64 20 157/84 H 96 10/02/17 07:22 10/02/17 07:22 10/02/17 07:22 10/02/17 07:22 10/02/17 07:22 - Medications Medications: Current Medications Acetaminophen (Tylenol 325mg Tab) 650 mg PO Q6 PRN PRN Reason: Fever >100.4 F Last Admin: 10/02/17 05:27 Dose: 650 mg Colchicine (Colocrys) 0.6 mg PO DAILY [facility] Last Admin: 10/01/17 09:12 Dose: 0.6 mg Dextrose (Dextrose 50% Inj) 0 ml IV STAT PRN; Protocol PRN Reason: Hypoglycemia Protocol Dextrose (Glutose 15) 15 gm PO ONCE PRN; Protocol PRN Reason: Hypoglycemia Protocol Ergocalciferol (Drisdol 50,000 Intl Units Cap) 1 cap PO QWK [facility] Last Admin: 10/01/17 09:11 Dose: 1 cap Ferrous Sulfate (Feosol) 325 mg PO DAILY [facility] Last Admin: 10/01/17 09:12 Dose: 325 mg Finasteride (Proscar) 5 mg PO DAILY [facility] Last Admin: 10/01/17 09:18 Dose: 5 mg Glipizide (Glucotrol) 5 mg PO DAILY [facility] Last Admin: 10/01/17 09:11 Dose: 5 mg Glucagon (Glucagen Diagnostic Kit) 1 mg IM STAT PRN; Protocol PRN Reason: Hypoglycemia Protocol Heparin Sodium (Porcine) (Heparin) 5,000 units SC Q12 [facility] Last Admin: 10/01/17 21:07 Dose: 5,000 units Home Med (Febuxostat [Uloric]) 40 mg PO DAILY [facility] Sodium Chloride (Sodium Chloride 0.9%) 1,000 mls @ 75 mls/hr IV .[id number] [facility] Last Admin: 10/02/17 04:12 Dose: 75 mls/hr Azithromycin 500 mg/ Sodium (Chloride) 250 mls @ 250 mls/hr IVPB Q24H [facility] PRN Reason: Protocol Last Admin: 10/01/17 22:12 Dose: 250 mls/hr Dextrose (Dextrose 5% In Water 1000 Ml) 1,000 mls @ 0 mls/hr IV .Q0M PRN; Protocol; Per Protocol PRN Reason: Hypoglycemia Protocol Meropenem 1 gm/ Sodium (Chloride) 100 mls @ 100 mls/hr IVPB Q8 [facility] PRN Reason: Protocol Last Admin: 10/02/17 05:20 Dose: 100 mls/hr Insulin Human Regular (Novolin R) 0 unit SC ACHS [facility] PRN Reason: Protocol Last Admin: 10/02/17 08:30 Dose: 2 unit Losartan Potassium (Cozaar) 100 mg PO DAILY [facility] Last Admin: 10/01/17 09:12 Dose: 100 mg Nebivolol (Bystolic) 20 mg PO DAILY [facility] Last Admin: 10/01/17 09:12 Dose: 20 mg [id number]-2-Ohku Ethyl Esters (Lovaza) 1 gm PO DAILY [facility] Last Admin: 10/01/17 09:11 Dose: 1 gm Oseltamivir Phosphate (Tamiflu Cap) 75 mg PO BID [facility] PRN Reason: Protocol Stop: 10/06/17 10:01 Last Admin: 10/01/17 17:49 Dose: 75 mg Oxybutynin Chloride (Ditropan Tab) 5 mg PO DAILY [facility] Last Admin: 10/01/17 09:12 Dose: 5 mg Pantoprazole Sodium (Protonix Inj) 40 mg IVP DAILY [facility] Last Admin: 10/01/17 09:08 Dose: 40 mg Potassium Chloride (K-Dur 20 Meq Er Tab) 20 meq PO ONCE ONE Stop: 10/02/17 09:09 Primidone (Mysoline) 50 mg PO DAILY [facility] Last Admin: 10/01/17 09:12 Dose: 50 mg Rosuvastatin Calcium (Crestor) 6 mg PO HS [facility] Last Admin: 10/01/17 21:07 Dose: 6 mg Tamsulosin HCl (Flomax) 0.4 mg PO DAILY [facility] Last Admin: 10/01/17 09:12 Dose: 0.4 mg - Labs Labs: 10/02/17 08:18 10/02/17 08:18 - Additional Findings Additional findings: - Constitutional Appears: Non-toxic, No Acute Distress - Head Exam Head Exam: ATRAUMATIC, NORMAL INSPECTION - Eye Exam Eye Exam: EOMI - ENT Exam ENT Exam: Mucous Membranes Moist - Respiratory Exam Respiratory Exam: Decreased Breath Sounds, Clear to Ausculation Bilateral, NORMAL BREATHING PATTERN. absent: Respiratory Distress - Cardiovascular Exam Cardiovascular Exam: REGULAR RHYTHM, +S1, +S2 - GI/Abdominal Exam GI & Abdominal Exam: Soft. absent: Distended, Firm, Guarding, Tenderness - Extremities Exam Extremities Exam: Normal Inspection - Back Exam Back Exam: NORMAL INSPECTION - Neurological Exam Neurological Exam: Alert, Awake, Oriented x3 - Psychiatric Exam Psychiatric exam: Normal Affect, Normal Mood - Skin Skin Exam: Intact, Normal Color Assessment and Plan - Assessment and Plan (Free Text) Assessment: UTI Urine culture positive for E. Coli, sensitive for Meropenem Meropenem 1gram IVPB Q8H WBC 14.7 with band of 15, temp 100.4 overnight blood cultures 09/29 - no growth for [address] Perez, ID, consulted help appreciated Dr. Pau Walker, urology, consulted help appreciated Influenza, positive Azithromycin 500mg IVPB Q daily Tamiflu 75mg PO BID - ends 10/06 NS at 75 cc/hour Chest X ray - no active disease Hypokalemia 3.3 today supplemented Hypomagnesia Improved Mag 2.0 BPH Flomax 0.4mg PO daily DM Glipizide 5mg PO daily accuchecks ACHS ISS Hypoglycemia protocol CKD Ergocalciferol 1 cap PO weekly (last dose 10/01) Proscar 1mg PO daily Anemia likely due to chronic disease/fe def Ferrous Sulfate 235mg PO daily HTN Bistolic 20mg PO daily Losartan 100mg PO daily HLD Lovaza 1gram PO daily Crestor 6mg PO HS Gout Colocrys 0.6mg PO daily Prophylactic Measures Protonix 40mg IVP daily Heart healthy diet SCDs Heparin 5000 U SC Q12 All management and orders per Dr. Jonna Humphrey.
[2017-10-02] MEDS ORDERED: Potassium Chloride 20 mEq ER Tab PO ONE (09:45)
[2017-10-02] MEDS: Omega-3-Acid Ethyl Esters 1 GM Cap PO SCH (10:01)
[2017-10-02 10:04] LABS: BANDS 15 % (0-2); LYMPHOCYTE 7 % (20-40); MONOCYTE 5 % (0-10); NEUTROPHIL 73 % (50-75); TOTAL CELLS COUNTED 100
[2017-10-02 10:05] LABS: ANISOCYTOSIS SLIGHT; PLATELET ESTIMATE DECREASED (NORMAL)
[2017-10-02 10:06] LABS: HYPOCHROMIC SLIGHT; OVALOCYTES SLIGHT; POLYCHROMIC SLIGHT
--- NOTE | 2017-10-02 10:28 | CP.PCM.PN ---
Subjective - Date & Time of Evaluation Date of Evaluation: 10/02/17 Time of Evaluation: 09:20 - Subjective Subjective: clinically same Objective - Vital Signs/Intake and Output Vital Signs (last 24 hours): Temp Pulse Resp BP Pulse Ox 98.6 F 64 20 157/84 H 96 10/02/17 07:22 10/02/17 07:22 10/02/17 07:22 10/02/17 07:22 10/02/17 07:22 - Medications Medications: Current Medications Acetaminophen (Tylenol 325mg Tab) 650 mg PO Q6 PRN PRN Reason: Fever >100.4 F Last Admin: 10/02/17 05:27 Dose: 650 mg Colchicine (Colocrys) 0.6 mg PO DAILY [facility] Last Admin: 10/02/17 10:04 Dose: 0.6 mg Dextrose (Dextrose 50% Inj) 0 ml IV STAT PRN; Protocol PRN Reason: Hypoglycemia Protocol Dextrose (Glutose 15) 15 gm PO ONCE PRN; Protocol PRN Reason: Hypoglycemia Protocol Ergocalciferol (Drisdol 50,000 Intl Units Cap) 1 cap PO QWK [facility] Last Admin: 10/01/17 09:11 Dose: 1 cap Ferrous Sulfate (Feosol) 325 mg PO DAILY [facility] Last Admin: 10/02/17 10:03 Dose: 325 mg Finasteride (Proscar) 5 mg PO DAILY [facility] Last Admin: 10/02/17 10:01 Dose: 5 mg Glipizide (Glucotrol) 5 mg PO DAILY [facility] Last Admin: 10/02/17 10:03 Dose: 5 mg Glucagon (Glucagen Diagnostic Kit) 1 mg IM STAT PRN; Protocol PRN Reason: Hypoglycemia Protocol Heparin Sodium (Porcine) (Heparin) 5,000 units SC Q12 [facility] Last Admin: 10/02/17 10:04 Dose: 5,000 units Sodium Chloride (Sodium Chloride 0.9%) 1,000 mls @ 75 mls/hr IV .[id number] [facility] Last Admin: 10/02/17 04:12 Dose: 75 mls/hr Azithromycin 500 mg/ Sodium (Chloride) 250 mls @ 250 mls/hr IVPB Q24H [facility] PRN Reason: Protocol Last Admin: 10/01/17 22:12 Dose: 250 mls/hr Dextrose (Dextrose 5% In Water 1000 Ml) 1,000 mls @ 0 mls/hr IV .Q0M PRN; Protocol; Per Protocol PRN Reason: Hypoglycemia Protocol Meropenem 1 gm/ Sodium (Chloride) 100 mls @ 100 mls/hr IVPB Q8 [facility] PRN Reason: Protocol Last Admin: 10/02/17 05:20 Dose: 100 mls/hr Insulin Human Regular (Novolin R) 0 unit SC ACHS [facility] PRN Reason: Protocol Last Admin: 10/02/17 08:30 Dose: 2 unit Losartan Potassium (Cozaar) 100 mg PO DAILY [facility] Last Admin: 10/02/17 10:03 Dose: 100 mg Nebivolol (Bystolic) 20 mg PO DAILY [facility] Last Admin: 10/02/17 10:03 Dose: 20 mg Ofvjs-6-Nvjo Ethyl Esters (Lovaza) 1 gm PO DAILY [facility] Last Admin: 10/02/17 10:01 Dose: 1 gm Oseltamivir Phosphate (Tamiflu Cap) 75 mg PO BID [facility] PRN Reason: Protocol Stop: 10/06/17 10:01 Last Admin: 10/02/17 10:02 Dose: 75 mg Oxybutynin Chloride (Ditropan Tab) 5 mg PO DAILY [facility] Last Admin: 10/02/17 10:03 Dose: 5 mg Pantoprazole Sodium (Protonix Inj) 40 mg IVP DAILY [facility] Last Admin: 10/02/17 09:57 Dose: 40 mg Primidone (Mysoline) 50 mg PO DAILY [facility] Last Admin: 10/02/17 10:04 Dose: 50 mg Rosuvastatin Calcium (Crestor) 6 mg PO HS [facility] Last Admin: 10/01/17 21:07 Dose: 6 mg Tamsulosin HCl (Flomax) 0.4 mg PO DAILY [facility] Last Admin: 10/02/17 10:01 Dose: 0.4 mg - Labs Labs: 10/02/17 08:18 10/02/17 08:18 - Constitutional Appears: Well - Head Exam Head Exam: ATRAUMATIC, NORMAL INSPECTION, NORMOCEPHALIC - Eye Exam Eye Exam: EOMI, Normal appearance, PERRL Pupil Exam: NORMAL ACCOMODATION, PERRL - ENT Exam ENT Exam: Mucous Membranes Moist, Normal Exam - Neck Exam Neck Exam: Full ROM, Normal Inspection. absent: Lymphadenopathy - Respiratory Exam Respiratory Exam: Decreased Breath Sounds - Cardiovascular Exam Cardiovascular Exam: REGULAR RHYTHM, +S1, +S2 - GI/Abdominal Exam GI & Abdominal Exam: Soft, Diminished Bowel Sounds - Rectal Exam Rectal Exam: Deferred
--- NOTE | 2017-10-02 18:12 | CP.PCM.PN ---
Subjective - Date & Time of Evaluation Date of Evaluation: 10/02/17 Time of Evaluation: 09:00 - Subjective Subjective: still febrile voiding small amounts may need galloway catheter and renal on board cultures repeated Objective - Vital Signs/Intake and Output Vital Signs (last 24 hours): Temp Pulse Resp BP Pulse Ox 101 F H 87 20 189/90 H 96 10/02/17 17:55 10/02/17 16:04 10/02/17 16:04 10/02/17 17:55 10/02/17 16:04 - Medications Medications: Current Medications Acetaminophen (Tylenol 325mg Tab) 650 mg PO Q6 PRN PRN Reason: Fever >100.4 F Last Admin: 10/02/17 17:53 Dose: 650 mg Colchicine (Colocrys) 0.6 mg PO DAILY [facility] Last Admin: 10/02/17 10:04 Dose: 0.6 mg Dextrose (Dextrose 50% Inj) 0 ml IV STAT PRN; Protocol PRN Reason: Hypoglycemia Protocol Dextrose (Glutose 15) 15 gm PO ONCE PRN; Protocol PRN Reason: Hypoglycemia Protocol Ergocalciferol (Drisdol 50,000 Intl Units Cap) 1 cap PO QWK [facility] Last Admin: 10/01/17 09:11 Dose: 1 cap Ferrous Sulfate (Feosol) 325 mg PO DAILY [facility] Last Admin: 10/02/17 10:03 Dose: 325 mg Finasteride (Proscar) 5 mg PO DAILY [facility] Last Admin: 10/02/17 10:01 Dose: 5 mg Glipizide (Glucotrol) 5 mg PO DAILY [facility] Last Admin: 10/02/17 10:03 Dose: 5 mg Glucagon (Glucagen Diagnostic Kit) 1 mg IM STAT PRN; Protocol PRN Reason: Hypoglycemia Protocol Heparin Sodium (Porcine) (Heparin) 5,000 units SC Q12 [facility] Last Admin: 10/02/17 10:04 Dose: 5,000 units Sodium Chloride (Sodium Chloride 0.9%) 1,000 mls @ 75 mls/hr IV .[id number] [facility] Last Admin: 10/02/17 13:00 Dose: Not Given Dextrose (Dextrose 5% In Water 1000 Ml) 1,000 mls @ 0 mls/hr IV .Q0M PRN; Protocol; Per Protocol PRN Reason: Hypoglycemia Protocol Cefepime HCl 1 gm/ Dextrose 50 mls @ 100 mls/hr IVPB Q12H [facility] PRN Reason: Protocol Insulin Human Regular (Novolin R) 0 unit SC ACHS [facility] PRN Reason: Protocol Last Admin: 10/02/17 16:45 Dose: Not Given Losartan Potassium (Cozaar) 100 mg PO DAILY [facility] Last Admin: 10/02/17 10:03 Dose: 100 mg Nebivolol (Bystolic) 20 mg PO DAILY [facility] Last Admin: 10/02/17 10:03 Dose: 20 mg Ankyk-5-Vlvf Ethyl Esters (Lovaza) 1 gm PO DAILY [facility] Last Admin: 10/02/17 10:01 Dose: 1 gm Oseltamivir Phosphate (Tamiflu Cap) 75 mg PO BID [facility] PRN Reason: Protocol Stop: 10/06/17 10:01 Last Admin: 10/02/17 17:50 Dose: 75 mg Oxybutynin Chloride (Ditropan Tab) 5 mg PO DAILY [facility] Last Admin: 10/02/17 10:03 Dose: 5 mg Pantoprazole Sodium (Protonix Inj) 40 mg IVP DAILY [facility] Last Admin: 10/02/17 09:57 Dose: 40 mg Primidone (Mysoline) 50 mg PO DAILY [facility] Last Admin: 10/02/17 10:04 Dose: 50 mg Rosuvastatin Calcium (Crestor) 6 mg PO HS [facility] Last Admin: 10/01/17 21:07 Dose: 6 mg Tamsulosin HCl (Flomax) 0.4 mg PO DAILY [facility] Last Admin: 10/02/17 10:01 Dose: 0.4 mg - Labs Labs: 10/02/17 08:18 10/02/17 08:18 - Constitutional Appears: Non-toxic, Chronically Ill - Head Exam Head Exam: NORMOCEPHALIC - Eye Exam Eye Exam: PERRL - ENT Exam ENT Exam: Mucous Membranes Dry - Neck Exam Neck Exam: absent: Lymphadenopathy - Respiratory Exam Respiratory Exam: Decreased Breath Sounds - Cardiovascular Exam Cardiovascular Exam: REGULAR RHYTHM - GI/Abdominal Exam GI & Abdominal Exam: Distended - Rectal Exam Rectal Exam: Deferred - Exam Exam: NORMAL INSPECTION - Extremities Exam Extremities Exam: absent: Pedal Edema - Back Exam Back Exam: absent: CVA tenderness (L), CVA tenderness (R) - Neurological Exam Neurological Exam: Alert, Awake, Oriented x3 - Psychiatric Exam Psychiatric exam: Depressed Assessment and Plan (1) Complicated urinary tract infection Status: Acute (2) Fever Status: Acute (3) Influenza-like illness Status: Acute - Assessment and Plan (Free Text) Assessment: still febrile voiding small amounts may need galloway catheter and renal on board cultures repeated
[2017-10-03] MEDS: Sodium Chloride 0.9% 1,000 ML IV SCH ×2 (02:11→12:34)
[2017-10-03 07:33] LABS: BASO # 0.1 K/uL (0.0-0.2); BASO % 0.6 % (0.0-2.0); EOS % 0.1 % (0.0-4.0); HEMOGLOBIN 11.7 g/dL (12.0-18.0); LYMPH # 1.4 K/uL (1.0-4.3); LYMPH % 13.5 % (20.0-40.0); MEAN CELL VOLUME 66.2 fL (80.0-94.0); MEAN CORPUSCULAR HGB CONC 33.2 g/dL (33.0-37.0); MEAN PLATELET VOLUME 9.1 fL (7.2-11.7); MONO % 9.6 % (0.0-10.0); NEUT # 7.7 K/uL (1.8-7.0); NEUT % 76.2 % (50.0-75.0); RBC 5.31 Mil/uL (4.40-5.90); RED CELL DISTRIBUTION WIDTH 16.6 % (11.5-14.5); WHITE BLOOD COUNT 10.1 K/uL (4.8-10.8)
[2017-10-03 07:47] LABS: ALB/GLOB RATIO 0.9 (1.0-2.1); ALT/SGPT 38 U/L (21-72); AST/SGOT 37 U/L (17-59); BLOOD UREA NITROGEN 30 mg/dL (9-20); CALCIUM 8.2 mg/dl (8.6-10.4); GFR AFRICAN-AMERICAN > 60; GFR NON-AFRICAN AMERICAN 54
[2017-10-03] MEDS: (Novolin R) Insulin Human Regular 100 units/ml vial SC SCH ×4 (08:12→21:45)
--- NOTE | 2017-10-03 10:01 | CP.PCM.CON ---
History of Present Illness - History of Present Illness History of Present Illness: consult for AMEE 72 yo H M with history of BPH, ,HTN, DL, NIDDM. Recent cystoscope this week, presents with fever and chills. Being treated for urinary sepsis as well as + for influenza. Pt with AMEE with peak creatinine to 1.7, now at 1.3. Some complaints of difficulty urinating, urine volume being evaluated, US of bladder this am. Review of Systems - Constitutional Constitutional: Chills, Fever - EENT Eyes: absent: Blurred Vision, Change in Vision Nose/Mouth/Throat: absent: Nasal Congestion, Nasal Discharge - Cardiovascular Cardiovascular: absent: Chest Pain, Edema - Gastrointestinal Gastrointestinal: Bloating. absent: Cramping - Genitourinary Genitourinary: Change in Urinary Stream, Difficulty Urinating - Neurological Neurological: absent: Headaches, Lack of Coordination - Psychiatric Psychiatric: absent: Confusion, Depression Past Patient History - Tetanus Immunizations Tetanus Immunization: Unknown - Past Medical History & Family History Past Medical History?: Yes - Past Social History Smoking Status: Never Smoked - CARDIAC Hx Hypertension: Yes - PULMONARY Hx Respiratory Disorders: No - NEUROLOGICAL Hx Neurological Disorder: No - HEENT Hx HEENT Problems: Yes Hx Cataracts: Yes (left eye) - RENAL Hx Chronic Kidney Disease: No - ENDOCRINE/METABOLIC Hx Endocrine Disorders: Yes (DM type II) - HEMATOLOGICAL/ONCOLOGICAL Hx Blood Disorders: No - INTEGUMENTARY Hx Dermatological Problems: No - MUSCULOSKELETAL/RHEUMATOLOGICAL Hx Musculoskeletal Disorders: Yes (osteoarthritis) Hx Falls: No - GASTROINTESTINAL Hx Gastrointestinal Disorders: No - GENITOURINARY/GYNECOLOGICAL Hx Genitourinary Disorders: Yes (BPH) Hx Prostate Problems: Yes - PSYCHIATRIC Hx Substance Use: No - SURGICAL HISTORY Hx Surgeries: Yes Hx Cataract Extraction: Yes (LEFT IOL) Other/Comment: PROSTATE BX NEG - ANESTHESIA Hx Anesthesia: Yes Hx Anesthesia Reactions: No Hx Malignant Hyperthermia: No Meds Allergies/Adverse Reactions: Allergies Allergy/AdvReac Type Severity Reaction Status Date / Time No Known Allergies Allergy Verified 07/25/13 10:26 - Medications Medications: Current Medications Acetaminophen (Tylenol 325mg Tab) 650 mg PO Q6 PRN PRN Reason: Fever >100.4 F Last Admin: 10/02/17 17:53 Dose: 650 mg Colchicine (Colocrys) 0.6 mg PO TTS [facility] Dextrose (Dextrose 50% Inj) 0 ml IV STAT PRN; Protocol PRN Reason: Hypoglycemia Protocol Dextrose (Glutose 15) 15 gm PO ONCE PRN; Protocol PRN Reason: Hypoglycemia Protocol Ergocalciferol (Drisdol 50,000 Intl Units Cap) 1 cap PO QWK [facility] Last Admin: 10/01/17 09:11 Dose: 1 cap Ferrous Sulfate (Feosol) 325 mg PO DAILY [facility] Last Admin: 10/02/17 10:03 Dose: 325 mg Finasteride (Proscar) 5 mg PO DAILY [facility] Last Admin: 10/02/17 10:01 Dose: 5 mg Glipizide (Glucotrol) 5 mg PO DAILY [facility] Last Admin: 10/02/17 10:03 Dose: 5 mg Glucagon (Glucagen Diagnostic Kit) 1 mg IM STAT PRN; Protocol PRN Reason: Hypoglycemia Protocol Heparin Sodium (Porcine) (Heparin) 5,000 units SC Q12 [facility] Last Admin: 10/02/17 21:51 Dose: 5,000 units Sodium Chloride (Sodium Chloride 0.9%) 1,000 mls @ 75 mls/hr IV .[id number] [facility] Last Admin: 10/03/17 02:11 Dose: 75 mls/hr Dextrose (Dextrose 5% In Water 1000 Ml) 1,000 mls @ 0 mls/hr IV .Q0M PRN; Protocol; Per Protocol PRN Reason: Hypoglycemia Protocol Cefepime HCl 1 gm/ Dextrose 50 mls @ 100 mls/hr IVPB Q12H [facility] PRN Reason: Protocol Last Admin: 10/03/17 05:52 Dose: 100 mls/hr Insulin Human Regular (Novolin R) 0 unit SC ACHS [facility] PRN Reason: Protocol Last Admin: 10/03/17 08:12 Dose: 2 unit Nebivolol (Bystolic) 20 mg PO DAILY [facility] Last Admin: 10/02/17 10:03 Dose: 20 mg Nbxix-4-Nwlw Ethyl Esters (Lovaza) 1 gm PO DAILY [facility] Last Admin: 10/02/17 10:01 Dose: 1 gm Oseltamivir Phosphate (Tamiflu Cap) 75 mg PO BID [facility] PRN Reason: Protocol Stop: 10/06/17 10:01 Last Admin: 10/02/17 17:50 Dose: 75 mg Oxybutynin Chloride (Ditropan Tab) 5 mg PO DAILY [facility] Last Admin: 10/02/17 10:03 Dose: 5 mg Pantoprazole Sodium (Protonix Inj) 40 mg IVP DAILY [facility] Last Admin: 10/02/17 09:57 Dose: 40 mg Primidone (Mysoline) 50 mg PO DAILY [facility] Last Admin: 10/02/17 10:04 Dose: 50 mg Rosuvastatin Calcium (Crestor) 5 mg PO HS [facility] Last Admin: 10/02/17 23:01 Dose: 5 mg Tamsulosin HCl (Flomax) 0.4 mg PO DAILY [facility] Last Admin: 10/02/17 10:01 Dose: 0.4 mg Physical Exam - Constitutional Appears: Non-toxic, No Acute Distress - Head Exam Head Exam: ATRAUMATIC, NORMAL INSPECTION - Eye Exam Eye Exam: EOMI, Normal appearance - ENT Exam ENT Exam: Mucous Membranes Moist - Neck Exam Neck exam: Positive for: Full Rom. Negative for: Lymphadenopathy - Respiratory Exam Respiratory Exam: Clear to Auscultation Bilateral. absent: Prolonged Expiratory Phase - Cardiovascular Exam Cardiovascular Exam: REGULAR RHYTHM. absent: Rubs - GI/Abdominal Exam GI & Abdominal Exam: Distended. absent: Tenderness - Extremities Exam Extremities exam: Negative for: pedal edema - Neurological Exam Neurological exam: Alert, Oriented x3 - Psychiatric Exam Psychiatric exam: Normal Affect, Normal Mood Results - Vital Signs Recent Vital Signs: Last Vital Signs Temp 99.7 F H 10/03/17 07:00 Pulse 66 10/03/17 07:00 Resp 20 10/03/17 07:00 BP 175/83 H 10/03/17 07:00 Pulse Ox 97 10/03/17 07:00 - Labs Result Diagrams: 10/03/17 07:20 10/03/17 07:20 Labs: Laboratory Results - last 24 hr 10/02/17 10/02/17 10/02/17 07:01 08:18 11:10 WBC RBC Hgb Hct MCV MCH MCHC RDW Plt Count MPV Neut % (Auto) Lymph % (Auto) [place] % (Auto) Eos % (Auto) Baso % (Auto) Neut # (Auto) Lymph # (Auto) [place] # (Auto) Eos # (Auto) Baso # (Auto) Neutrophils % (Manual) 73 Band Neutrophils % 15 H* Lymphocytes % (Manual) 7 L Monocytes % (Manual) 5 Platelet Estimate Decreased L Polychromasia Slight Hypochromasia (manual) Slight Anisocytosis (manual) Slight Ovalocytes Slight Sodium Potassium Chloride Carbon Dioxide Anion Gap BUN Creatinine Est GFR ( Amer) Est GFR (Non-Af Amer) POC Glucose (mg/dL) 153 H 179 H Random Glucose Calcium Total Bilirubin AST ALT Alkaline Phosphatase Total Protein Albumin Globulin Albumin/Globulin Ratio 10/02/17 10/02/17 10/03/17 16:27 21:13 06:10 WBC RBC Hgb Hct MCV MCH MCHC RDW Plt Count MPV Neut % (Auto) Lymph % (Auto) [place] % (Auto) Eos % (Auto) Baso % (Auto) Neut # (Auto) Lymph # (Auto) [place] # (Auto) Eos # (Auto) Baso # (Auto) Neutrophils % (Manual) Band Neutrophils % Lymphocytes % (Manual) Monocytes % (Manual) Platelet Estimate Polychromasia Hypochromasia (manual) Anisocytosis (manual) Ovalocytes Sodium Potassium Chloride Carbon Dioxide Anion Gap BUN Creatinine Est GFR ( Amer) Est GFR (Non-Af Amer) POC Glucose (mg/dL) 106 177 H 188 H Random Glucose Calcium Total Bilirubin AST ALT Alkaline Phosphatase Total Protein Albumin Globulin Albumin/Globulin Ratio 10/03/17 10/03/17 07:20 07:20 WBC 10.1 RBC 5.31 Hgb 11.7 L Hct 35.1 MCV 66.2 L MCH 22.0 L MCHC 33.2 RDW 16.6 H Plt Count 107 L MPV 9.1 Neut % (Auto) 76.2 H Lymph % (Auto) 13.5 L [place] % (Auto) 9.6 Eos % (Auto) 0.1 Baso % (Auto) 0.6 Neut # (Auto) 7.7 H Lymph # (Auto) 1.4 [place] # (Auto) 1.0 H Eos # (Auto) 0.0 Baso # (Auto) 0.1 Neutrophils % (Manual) Band Neutrophils % Lymphocytes % (Manual) Monocytes % (Manual) Platelet Estimate Polychromasia Hypochromasia (manual) Anisocytosis (manual) Ovalocytes Sodium 135 Potassium 3.4 L Chloride 104 Carbon Dioxide 22 Anion Gap 13 BUN 30 H Creatinine 1.3 Est GFR ( Amer) > 60 Est GFR (Non-Af Amer) 54 POC Glucose (mg/dL) Random Glucose 174 H Calcium 8.2 L Total Bilirubin 0.7 AST 37 ALT 38 Alkaline Phosphatase 113 Total Protein 6.2 L Albumin 3.0 L Globulin 3.2 Albumin/Globulin Ratio 0.9 L Assessment & Plan - Assessment and Plan (Free Text) Assessment: nonoliguric AMEE, better, complicated by sepsis syndrome, likey related hold huaarten for now decrease interval of colchicine check bladder us to evaluate check urine for protein, given underlying diabetes
[2017-10-03] MEDS: Omega-3-Acid Ethyl Esters 1 GM Cap PO SCH (10:22)
[2017-10-03 11:31] LABS: SQUAMOUS EPITHIAL < 1 /hpf (0-5); URINE BACTERIA RARE (<OCC); URINE BILIRUBIN NEGATIVE (NEGATIVE); URINE BLOOD 2+ (NEGATIVE); URINE CLARITY Clear (Clear); URINE COLOR Yellow (YELLOW); URINE GLUCOSE (UA) NORMAL (Normal); URINE LEUKOCYTE ESTERASE TRACE Leu/uL (Negative); URINE PROTEIN 3+ mg/dL (NEGATIVE); URINE UROBILINOGEN NORMAL mg/dL (0.2-1.0)
[2017-10-03] MEDS ORDERED: Potassium Chloride 20 mEq ER Tab PO ONE (15:22)
[2017-10-03] MEDS ORDERED: Potassium Chloride 10 mEq ER Tab PO SCH (16:30)
[2017-10-03] MEDS: Saccharomyces Boulardi 250 mg Cap PO SCH (17:53)
--- NOTE | 2017-10-03 18:26 | US ---
HISTORY: Renal failure COMPARISON: None. . TECHNIQUE: Sonographic evaluation of the right upper quadrant of the abdomen. . FINDINGS: LIVER: Measures 15.5 cm in length. Smooth contour though increased echogenicity of the liver parenchyma suggesting fatty infiltration however other infiltrative hepatic cellular disease process not excluded. . No mass. No intrahepatic bile duct dilatation. GALLBLADDER: Unremarkable. No gallstones. . No sonographic Fuller sign. COMMON BILE DUCT: Measures 4.0 mm. No stones. No dilatation. PANCREAS: Unremarkable as visualized. No mass. No ductal dilatation. . RIGHT KIDNEY: Measures 13.3 x 6.0 x 6.2 cm in length. Normal echogenicity. No calculus, mass, or hydronephrosis. At least a 2 cysts in the upper mid pole and mid to lower pole of present ; upper pole - midpole cyst measuring approximately 6.3 cm in greatest dimension. Midpole -lower pole cyst measuring approximately 5.2 cm in greatest dimension. LEFT KIDNEY: Measures 12.4 x 6.2 x 5.9 cm in length. Normal echogenicity. No calculus, mass, or hydronephrosis. At least a 2 cysts in the upper mid pole and mid pole of present ; upper pole - midpole cyst measuring approximately 5.6 cm in greatest dimension. Midpole -lower pole cyst measuring approximately cm 2.2 in greatest dimension. AORTA: No aneurysmal dilatation. . IVC: Unremarkable. . OTHER FINDINGS: None . . IMPRESSION: Echogenic liver likely due to fatty infiltration however other infiltrative hepatic cellular disease process not excluded. Bilateral renal cysts as described.
--- NOTE | 2017-10-03 18:28 | US ---
HISTORY: Urinary hesitancy COMPARISON: Correlation made with prior CT scan abdomen pelvis dated 03/14/2016 which imaged the urinary bladder. TECHNIQUE: Transabdominal sonographic evaluation of the urinary bladder and prostate performed. FINDINGS: Prevoid bladder volume calculated at 84 and postvoid calculated at 9.7. . Urinary bladder wall is thickened likely due to incomplete distention. No obvious discrete urine bladder wall masses. . No evidence of intraluminal urinary bladder calculi. Right ureteral jet visible. Left ureteral jet not seen. Prostate gland is enlarged with total volume a = 149.72 CC IMPRESSION: Enlarged prostate gland. Small prevoid and minimal postvoid residual as described. Urinary bladder wall is thickened likely due to incomplete distention. No definitive evidence of discrete wall masses or intraluminal calculi.
--- NOTE | 2017-10-03 19:04 | CP.PCM.PN ---
Subjective - Date & Time of Evaluation Date of Evaluation: 10/03/17 Time of Evaluation: 09:00 - Subjective Subjective: clinically same Objective - Vital Signs/Intake and Output Vital Signs (last 24 hours): Temp Pulse Resp BP Pulse Ox 99 F 59 L 20 175/83 H 99 10/03/17 15:23 10/03/17 15:23 10/03/17 15:23 10/03/17 07:00 10/03/17 15:23 Intake and Output: 10/03/17 10/04/17 18:59 06:59 Intake Total 1375 Output Total 701 Balance 674 - Medications Medications: Current Medications Acetaminophen (Tylenol 325mg Tab) 650 mg PO Q6 PRN PRN Reason: Fever >100.4 F Last Admin: 10/02/17 17:53 Dose: 650 mg Colchicine (Colocrys) 0.6 mg PO TTS [facility] Last Admin: 10/03/17 10:22 Dose: 0.6 mg Dextrose (Dextrose 50% Inj) 0 ml IV STAT PRN; Protocol PRN Reason: Hypoglycemia Protocol Dextrose (Glutose 15) 15 gm PO ONCE PRN; Protocol PRN Reason: Hypoglycemia Protocol Ergocalciferol (Drisdol 50,000 Intl Units Cap) 1 cap PO QWK [facility] Last Admin: 10/01/17 09:11 Dose: 1 cap Ferrous Sulfate (Feosol) 325 mg PO DAILY [facility] Last Admin: 10/03/17 10:21 Dose: 325 mg Finasteride (Proscar) 5 mg PO DAILY [facility] Last Admin: 10/03/17 10:21 Dose: 5 mg Glipizide (Glucotrol) 5 mg PO DAILY [facility] Last Admin: 10/03/17 10:27 Dose: 5 mg Glucagon (Glucagen Diagnostic Kit) 1 mg IM STAT PRN; Protocol PRN Reason: Hypoglycemia Protocol Heparin Sodium (Porcine) (Heparin) 5,000 units SC Q12 [facility] Last Admin: 10/03/17 10:20 Dose: 5,000 units Sodium Chloride (Sodium Chloride 0.9%) 1,000 mls @ 75 mls/hr IV .[id number] [facility] Last Admin: 10/03/17 12:34 Dose: 75 mls/hr Dextrose (Dextrose 5% In Water 1000 Ml) 1,000 mls @ 0 mls/hr IV .Q0M PRN; Protocol; Per Protocol PRN Reason: Hypoglycemia Protocol Cefepime HCl 1 gm/ Dextrose 50 mls @ 100 mls/hr IVPB Q12H [facility] PRN Reason: Protocol Last Admin: 10/03/17 17:50 Dose: 100 mls/hr Insulin Human Regular (Novolin R) 0 unit SC ACHS [facility] PRN Reason: Protocol Last Admin: 10/03/17 16:38 Dose: Not Given Nebivolol (Bystolic) 20 mg PO DAILY [facility] Last Admin: 10/03/17 10:22 Dose: 20 mg Ofyki-8-Whlt Ethyl Esters (Lovaza) 1 gm PO DAILY [facility] Last Admin: 10/03/17 10:22 Dose: 1 gm Oseltamivir Phosphate (Tamiflu Cap) 75 mg PO BID [facility] PRN Reason: Protocol Stop: 10/06/17 10:01 Last Admin: 10/03/17 17:50 Dose: 75 mg Oxybutynin Chloride (Ditropan Tab) 5 mg PO DAILY [facility] Last Admin: 10/03/17 10:22 Dose: 5 mg Pantoprazole Sodium (Protonix Inj) 40 mg IVP DAILY [facility] Last Admin: 10/03/17 10:19 Dose: 40 mg Potassium Chloride (Klor-Con 10) 10 meq PO BRK [facility] Primidone (Mysoline) 50 mg PO DAILY [facility] Last Admin: 10/03/17 10:22 Dose: 50 mg Rosuvastatin Calcium (Crestor) 5 mg PO HS [facility] Last Admin: 10/02/17 23:01 Dose: 5 mg Saccharomyces Boulardii (Florastor) 250 mg PO BID [facility] Last Admin: 10/03/17 17:53 Dose: 250 mg Tamsulosin HCl (Flomax) 0.4 mg PO DAILY [facility] Last Admin: 10/03/17 10:27 Dose: 0.4 mg - Labs Labs: 10/03/17 07:20 10/03/17 07:20 - Constitutional Appears: Well - Head Exam Head Exam: ATRAUMATIC, NORMAL INSPECTION, NORMOCEPHALIC - Eye Exam Eye Exam: EOMI, Normal appearance, PERRL Pupil Exam: NORMAL ACCOMODATION, PERRL - ENT Exam ENT Exam: Mucous Membranes Moist, Normal Exam - Neck Exam Neck Exam: Full ROM, Normal Inspection. absent: Lymphadenopathy - Respiratory Exam Respiratory Exam: Decreased Breath Sounds - Cardiovascular Exam Cardiovascular Exam: REGULAR RHYTHM, +S1, +S2 - GI/Abdominal Exam GI & Abdominal Exam: Soft, Diminished Bowel Sounds - Rectal Exam Rectal Exam: Deferred
[2017-10-04] MEDS: Sodium Chloride 0.9% 1,000 ML IV SCH ×2 (03:09→16:50)
[2017-10-04 08:18] LABS: BASO # 0.1 K/uL (0.0-0.2); BASO % 0.7 % (0.0-2.0); EOS # 0.1 K/uL (0.0-0.7); EOS % 1.4 % (0.0-4.0); HEMOGLOBIN 11.9 g/dL (12.0-18.0); LYMPH # 2.2 K/uL (1.0-4.3); LYMPH % 28.5 % (20.0-40.0); MEAN CELL VOLUME 65.9 fL (80.0-94.0); MEAN CORPUSCULAR HGB CONC 33.4 g/dL (33.0-37.0); MEAN PLATELET VOLUME 9.3 fL (7.2-11.7); MONO # 1.5 K/uL (0.0-0.8); MONO % 18.8 % (0.0-10.0); NEUT # 3.9 K/uL (1.8-7.0); NEUT % 50.6 % (50.0-75.0); RBC 5.41 Mil/uL (4.40-5.90); RED CELL DISTRIBUTION WIDTH 16.4 % (11.5-14.5); WHITE BLOOD COUNT 7.8 K/uL (4.8-10.8)
[2017-10-04] MEDS: Potassium Chloride 10 mEq ER Tab PO SCH (08:23)
[2017-10-04] MEDS: (Novolin R) Insulin Human Regular 100 units/ml vial SC SCH ×4 (08:23→21:39)
[2017-10-04 08:38] LABS: ALB/GLOB RATIO 0.9 (1.0-2.1); ALBUMIN 3.1 g/dL (3.5-5.0); ALT/SGPT 45 U/L (21-72); AST/SGOT 51 U/L (17-59); BLOOD UREA NITROGEN 29 mg/dL (9-20); CALCIUM 7.8 mg/dl (8.6-10.4); GFR AFRICAN-AMERICAN > 60; GFR NON-AFRICAN AMERICAN 54
[2017-10-04 08:39] LABS: URINE CREATININE 51.3 mg/dL
[2017-10-04] MEDS: Omega-3-Acid Ethyl Esters 1 GM Cap PO SCH (09:24)
[2017-10-04] MEDS: Saccharomyces Boulardi 250 mg Cap PO SCH ×2 (09:24→17:42)
--- NOTE | 2017-10-04 12:00 | PQF ---
PROVIDER RESPONSE TEXT: Severe Sepsis REVIEWER QUERY TEXT: Clarification of Clinical Diagnostic Findings Please clarify documentation or clinical relevance for the clinical / diagnostic findings or whether those are insignificant or unable to be further specified. ---Unable to determine -- Other, please specify The patient's Clinical Indicators include: ?72 y/o male presents to ED with c/o fever for "few days" developed after having Cystoscopy. Patient reports he is compliant with medication and denies nausea, vomiting, dysuria or any other complaints at this time?. SEVERE SEPSIS CRITERIA: Focus of infection as UTI/Influenza. FEVER: 103/103/101/101 WBC: 11.3/13.7/14.7 BAND Neutrophils: 5*/19*/15* PLT: 152/98/98. Urine Exam with Bacterias Occ. Influenza A Positive. Cefepime HCl 1 gm/ Dextrose 50 mls @ 100 mls/hr IVPB Q12H Please consider verify the following information as well match with severe sepsis criteria, consider document it if agree. Query created by: Castro Sheehan on 10/02/2017 7:14 PM Electronically signed by: Sharon HERNANDEZ 10/04/2017 11:57 AM
--- NOTE | 2017-10-04 14:10 | CP.PCM.PN ---
Subjective - Date & Time of Evaluation Date of Evaluation: 10/04/17 Time of Evaluation: 09:00 - Subjective Subjective: 72 yo H M with history of BPH, ,HTN, DL, NIDDM. Recent cystoscope this week, presents with fever and chills. Being treated for urinary sepsis as well as + for influenza. Pt with AMEE with peak creatinine to 1.7, now at 1.3. Objective - Vital Signs/Intake and Output Vital Signs (last 24 hours): Temp Pulse Resp BP Pulse Ox 98.3 F 62 20 138/75 99 10/04/17 07:00 10/04/17 07:00 10/04/17 07:00 10/04/17 09:21 10/04/17 07:00 Intake and Output: 10/04/17 10/04/17 06:59 18:59 Intake Total 1240 Output Total 500 Balance 740 - Medications Medications: Current Medications Acetaminophen (Tylenol 325mg Tab) 650 mg PO Q6 PRN PRN Reason: Fever >100.4 F Last Admin: 10/02/17 17:53 Dose: 650 mg Amlodipine Besylate (Norvasc) 10 mg PO DAILY [facility] Last Admin: 10/04/17 09:24 Dose: 10 mg Clonidine HCl (Catapres) 0.1 mg PO Q8H PRN PRN Reason: Systolic Blood Pressure Last Admin: 10/04/17 08:22 Dose: 0.1 mg Colchicine (Colocrys) 0.6 mg PO TTS [facility] Last Admin: 10/03/17 10:22 Dose: 0.6 mg Dextrose (Dextrose 50% Inj) 0 ml IV STAT PRN; Protocol PRN Reason: Hypoglycemia Protocol Dextrose (Glutose 15) 15 gm PO ONCE PRN; Protocol PRN Reason: Hypoglycemia Protocol Ergocalciferol (Drisdol 50,000 Intl Units Cap) 1 cap PO QWK [facility] Last Admin: 10/01/17 09:11 Dose: 1 cap Ferrous Sulfate (Feosol) 325 mg PO DAILY [facility] Last Admin: 10/04/17 09:24 Dose: 325 mg Finasteride (Proscar) 5 mg PO DAILY [facility] Last Admin: 10/04/17 09:24 Dose: 5 mg Glipizide (Glucotrol) 5 mg PO DAILY [facility] Last Admin: 10/04/17 09:24 Dose: 5 mg Glucagon (Glucagen Diagnostic Kit) 1 mg IM STAT PRN; Protocol PRN Reason: Hypoglycemia Protocol Heparin Sodium (Porcine) (Heparin) 5,000 units SC Q12 [facility] Last Admin: 10/04/17 09:22 Dose: 5,000 units Dextrose (Dextrose 5% In Water 1000 Ml) 1,000 mls @ 0 mls/hr IV .Q0M PRN; Protocol; Per Protocol PRN Reason: Hypoglycemia Protocol Cefepime HCl 1 gm/ Dextrose 50 mls @ 100 mls/hr IVPB Q12H [facility] PRN Reason: Protocol Last Admin: 10/04/17 05:44 Dose: 100 mls/hr Insulin Human Regular (Novolin R) 0 unit SC ACHS [facility] PRN Reason: Protocol Last Admin: 10/04/17 12:12 Dose: 2 unit Nebivolol (Bystolic) 20 mg PO DAILY [facility] Last Admin: 10/04/17 09:24 Dose: 20 mg Sffbu-2-[id number] Ethyl Esters (Lovaza) 1 gm PO DAILY [facility] Last Admin: 10/04/17 09:24 Dose: 1 gm Oseltamivir Phosphate (Tamiflu Cap) 75 mg PO BID [facility] PRN Reason: Protocol Stop: 10/06/17 10:01 Last Admin: 10/04/17 09:24 Dose: 75 mg Oxybutynin Chloride (Ditropan Tab) 5 mg PO DAILY [facility] Last Admin: 10/04/17 09:24 Dose: 5 mg Pantoprazole Sodium (Protonix Inj) 40 mg IVP DAILY [facility] Last Admin: 10/04/17 09:19 Dose: 40 mg Potassium Chloride (Klor-Con 10) 10 meq PO BRK [facility] Last Admin: 10/04/17 08:23 Dose: 10 meq Primidone (Mysoline) 50 mg PO DAILY [facility] Last Admin: 10/04/17 09:25 Dose: 50 mg Rosuvastatin Calcium (Crestor) 5 mg PO HS [facility] Last Admin: 10/03/17 21:50 Dose: 5 mg Saccharomyces Boulardii (Florastor) 250 mg PO BID [facility] Last Admin: 10/04/17 09:24 Dose: 250 mg Tamsulosin HCl (Flomax) 0.4 mg PO DAILY [facility] Last Admin: 10/04/17 09:23 Dose: 0.4 mg - Labs Labs: 10/04/17 07:50 10/04/17 08:17 - Constitutional Appears: Non-toxic, Chronically Ill - Head Exam Head Exam: NORMOCEPHALIC - Eye Exam Eye Exam: PERRL - ENT Exam ENT Exam: Mucous Membranes Dry - Neck Exam Neck Exam: absent: Lymphadenopathy - Respiratory Exam Respiratory Exam: Decreased Breath Sounds, Clear to Ausculation Bilateral - Cardiovascular Exam Cardiovascular Exam: REGULAR RHYTHM - GI/Abdominal Exam GI & Abdominal Exam: Distended, Soft - Rectal Exam Rectal Exam: Deferred - Exam Exam: NORMAL INSPECTION - Extremities Exam Extremities Exam: absent: Pedal Edema - Back Exam Back Exam: absent: CVA tenderness (L), CVA tenderness (R) - Neurological Exam Neurological Exam: Alert, Awake, Oriented x3 - Psychiatric Exam Psychiatric exam: Normal Mood - Skin Skin Exam: Dry Assessment and Plan (1) Complicated urinary tract infection Status: Acute (2) Fever Status: Acute (3) Influenza-like illness Status: Acute - Assessment and Plan (Free Text) Assessment: CONT IV ANTIBIOTICS FOLLOW UP
--- NOTE | 2017-10-04 15:34 | CP.PCM.PN ---
Subjective - Date & Time of Evaluation Date of Evaluation: 10/04/17 Time of Evaluation: 09:00 - Subjective Subjective: clinically same Objective - Vital Signs/Intake and Output Vital Signs (last 24 hours): Temp Pulse Resp BP Pulse Ox 98.3 F 62 20 138/75 99 10/04/17 07:00 10/04/17 07:00 10/04/17 07:00 10/04/17 09:21 10/04/17 07:00 Intake and Output: 10/04/17 10/04/17 06:59 18:59 Intake Total 1240 Output Total 500 Balance 740 - Medications Medications: Current Medications Acetaminophen (Tylenol 325mg Tab) 650 mg PO Q6 PRN PRN Reason: Fever >100.4 F Last Admin: 10/02/17 17:53 Dose: 650 mg Amlodipine Besylate (Norvasc) 10 mg PO DAILY [facility] Last Admin: 10/04/17 09:24 Dose: 10 mg Clonidine HCl (Catapres) 0.1 mg PO Q8H PRN PRN Reason: Systolic Blood Pressure Last Admin: 10/04/17 08:22 Dose: 0.1 mg Colchicine (Colocrys) 0.6 mg PO TTS [facility] Last Admin: 10/03/17 10:22 Dose: 0.6 mg Dextrose (Dextrose 50% Inj) 0 ml IV STAT PRN; Protocol PRN Reason: Hypoglycemia Protocol Dextrose (Glutose 15) 15 gm PO ONCE PRN; Protocol PRN Reason: Hypoglycemia Protocol Ergocalciferol (Drisdol 50,000 Intl Units Cap) 1 cap PO QWK [facility] Last Admin: 10/01/17 09:11 Dose: 1 cap Ferrous Sulfate (Feosol) 325 mg PO DAILY [facility] Last Admin: 10/04/17 09:24 Dose: 325 mg Finasteride (Proscar) 5 mg PO DAILY [facility] Last Admin: 10/04/17 09:24 Dose: 5 mg Glipizide (Glucotrol) 5 mg PO DAILY [facility] Last Admin: 10/04/17 09:24 Dose: 5 mg Glucagon (Glucagen Diagnostic Kit) 1 mg IM STAT PRN; Protocol PRN Reason: Hypoglycemia Protocol Heparin Sodium (Porcine) (Heparin) 5,000 units SC Q12 [facility] Last Admin: 10/04/17 09:22 Dose: 5,000 units Dextrose (Dextrose 5% In Water 1000 Ml) 1,000 mls @ 0 mls/hr IV .Q0M PRN; Protocol; Per Protocol PRN Reason: Hypoglycemia Protocol Cefepime HCl 1 gm/ Dextrose 50 mls @ 100 mls/hr IVPB Q12H [facility] PRN Reason: Protocol Last Admin: 10/04/17 05:44 Dose: 100 mls/hr Insulin Human Regular (Novolin R) 0 unit SC ACHS [facility] PRN Reason: Protocol Last Admin: 10/04/17 12:12 Dose: 2 unit Nebivolol (Bystolic) 20 mg PO DAILY [facility] Last Admin: 10/04/17 09:24 Dose: 20 mg Lkhrr-6-Kelf Ethyl Esters (Lovaza) 1 gm PO DAILY [facility] Last Admin: 10/04/17 09:24 Dose: 1 gm Oseltamivir Phosphate (Tamiflu Cap) 75 mg PO BID [facility] PRN Reason: Protocol Stop: 10/06/17 10:01 Last Admin: 10/04/17 09:24 Dose: 75 mg Oxybutynin Chloride (Ditropan Tab) 5 mg PO DAILY [facility] Last Admin: 10/04/17 09:24 Dose: 5 mg Pantoprazole Sodium (Protonix Inj) 40 mg IVP DAILY [facility] Last Admin: 10/04/17 09:19 Dose: 40 mg Potassium Chloride (Klor-Con 10) 10 meq PO BRK [facility] Last Admin: 10/04/17 08:23 Dose: 10 meq Primidone (Mysoline) 50 mg PO DAILY [facility] Last Admin: 10/04/17 09:25 Dose: 50 mg Rosuvastatin Calcium (Crestor) 5 mg PO HS [facility] Last Admin: 10/03/17 21:50 Dose: 5 mg Saccharomyces Boulardii (Florastor) 250 mg PO BID [facility] Last Admin: 10/04/17 09:24 Dose: 250 mg Tamsulosin HCl (Flomax) 0.4 mg PO DAILY [facility] Last Admin: 10/04/17 09:23 Dose: 0.4 mg - Labs Labs: 10/04/17 07:50 10/04/17 08:17 - Constitutional Appears: Well - Head Exam Head Exam: ATRAUMATIC, NORMAL INSPECTION, NORMOCEPHALIC - Eye Exam Eye Exam: EOMI, Normal appearance, PERRL Pupil Exam: NORMAL ACCOMODATION, PERRL - ENT Exam ENT Exam: Mucous Membranes Moist, Normal Exam - Neck Exam Neck Exam: Full ROM, Normal Inspection. absent: Lymphadenopathy - Respiratory Exam Respiratory Exam: Decreased Breath Sounds - Cardiovascular Exam Cardiovascular Exam: REGULAR RHYTHM, +S1, +S2 - GI/Abdominal Exam GI & Abdominal Exam: Soft, Diminished Bowel Sounds - Rectal Exam Rectal Exam: Deferred
[2017-10-05 00:28] VITALS: RESP 20
[2017-10-05] MEDS: Sodium Chloride 0.9% 1,000 ML IV SCH ×2 (05:30→08:22)
[2017-10-05] MEDS: (Novolin R) Insulin Human Regular 100 units/ml vial SC SCH ×4 (08:07→21:32)
[2017-10-05 08:08] LABS: BASO # 0.1 K/uL (0.0-0.2); BASO % 1.1 % (0.0-2.0); EOS # 0.2 K/uL (0.0-0.7); EOS % 3.2 % (0.0-4.0); HEMOGLOBIN 11.9 g/dL (12.0-18.0); LYMPH # 2.3 K/uL (1.0-4.3); LYMPH % 34.9 % (20.0-40.0); MEAN CELL VOLUME 65.7 fL (80.0-94.0); MEAN CORPUSCULAR HEMOGLOBIN 21.7 pg (27.0-31.0); MEAN PLATELET VOLUME 8.8 fL (7.2-11.7); MONO # 1.2 K/uL (0.0-0.8); MONO % 18.5 % (0.0-10.0); NEUT # 2.8 K/uL (1.8-7.0); NEUT % 42.3 % (50.0-75.0); NRBC % 0.1 % (0.0-2.0); RBC 5.47 Mil/uL (4.40-5.90); RED CELL DISTRIBUTION WIDTH 16.4 % (11.5-14.5); WHITE BLOOD COUNT 6.7 K/uL (4.8-10.8)
[2017-10-05 08:21] LABS: ALB/GLOB RATIO 1.1 (1.0-2.1); ALBUMIN 3.3 g/dL (3.5-5.0); ALT/SGPT 56 U/L (21-72); AST/SGOT 60 U/L (17-59); BLOOD UREA NITROGEN 27 mg/dL (9-20); CALCIUM 8.2 mg/dl (8.6-10.4); GFR AFRICAN-AMERICAN > 60; GFR NON-AFRICAN AMERICAN 60
[2017-10-05] MEDS: Potassium Chloride 10 mEq ER Tab PO SCH (08:22)
--- NOTE | 2017-10-05 09:55 | CP.PCM.PN ---
Subjective - Date & Time of Evaluation Date of Evaluation: 10/05/17 Time of Evaluation: 08:50 - Subjective Subjective: PGY2 Medicine Note for Dr. Jonna Humphrey Patient seen and examined this morning at bedside. Patient reports increased urination. He denies any pain with urination but is still experiencing dribbling. Patient's blood pressure is still elevated but he denies any headaches, difficulty with balance or visual changes. Patient's diarrhea is improving, less watery. Denies fevers, chills, nausea, vomiting, constipation, chest pain, shortness of breath, palpitations, abdominal pain. Objective - Vital Signs/Intake and Output Vital Signs (last 24 hours): Temp Pulse Resp BP Pulse Ox 98.2 F 61 20 174/90 H 99 10/05/17 07:50 10/05/17 07:50 10/05/17 07:50 10/05/17 07:50 10/05/17 07:50 Intake and Output: 10/05/17 10/05/17 06:59 18:59 Intake Total 740 850 Output Total 800 Balance 740 50 - Medications Medications: Current Medications Acetaminophen (Tylenol 325mg Tab) 650 mg PO Q6 PRN PRN Reason: Fever >100.4 F Last Admin: 10/02/17 17:53 Dose: 650 mg Amlodipine Besylate (Norvasc) 10 mg PO DAILY [facility] Last Admin: 10/04/17 09:24 Dose: 10 mg Clonidine HCl (Catapres) 0.1 mg PO Q8H PRN PRN Reason: Systolic Blood Pressure Last Admin: 10/05/17 00:18 Dose: 0.1 mg Colchicine (Colocrys) 0.6 mg PO TTS [facility] Last Admin: 10/03/17 10:22 Dose: 0.6 mg Dextrose (Dextrose 50% Inj) 0 ml IV STAT PRN; Protocol PRN Reason: Hypoglycemia Protocol Dextrose (Glutose 15) 15 gm PO ONCE PRN; Protocol PRN Reason: Hypoglycemia Protocol Ergocalciferol (Drisdol 50,000 Intl Units Cap) 1 cap PO QWK [facility] Last Admin: 10/01/17 09:11 Dose: 1 cap Ferrous Sulfate (Feosol) 325 mg PO DAILY [facility] Last Admin: 10/04/17 09:24 Dose: 325 mg Finasteride (Proscar) 5 mg PO DAILY [facility] Last Admin: 10/04/17 09:24 Dose: 5 mg Glipizide (Glucotrol) 5 mg PO DAILY [facility] Last Admin: 10/04/17 09:24 Dose: 5 mg Glucagon (Glucagen Diagnostic Kit) 1 mg IM STAT PRN; Protocol PRN Reason: Hypoglycemia Protocol Heparin Sodium (Porcine) (Heparin) 5,000 units SC Q12 [facility] Last Admin: 10/04/17 22:00 Dose: 5,000 units Dextrose (Dextrose 5% In Water 1000 Ml) 1,000 mls @ 0 mls/hr IV .Q0M PRN; Protocol; Per Protocol PRN Reason: Hypoglycemia Protocol Cefepime HCl 1 gm/ Dextrose 50 mls @ 100 mls/hr IVPB Q12H [facility] PRN Reason: Protocol Last Admin: 10/05/17 05:43 Dose: 100 mls/hr Sodium Chloride (Sodium Chloride 0.9%) 1,000 mls @ 75 mls/hr IV .[id number] [facility] Last Admin: 10/05/17 05:30 Dose: Not Given Insulin Human Regular (Novolin R) 0 unit SC ACHS [facility] PRN Reason: Protocol Last Admin: 10/05/17 08:07 Dose: Not Given Nebivolol (Bystolic) 20 mg PO DAILY [facility] Last Admin: 10/04/17 09:24 Dose: 20 mg Acovu-6-Pftr Ethyl Esters (Lovaza) 1 gm PO DAILY [facility] Last Admin: 10/04/17 09:24 Dose: 1 gm Oseltamivir Phosphate (Tamiflu Cap) 75 mg PO BID [facility] PRN Reason: Protocol Stop: 10/06/17 10:01 Last Admin: 10/04/17 17:42 Dose: 75 mg Oxybutynin Chloride (Ditropan Tab) 5 mg PO DAILY [facility] Last Admin: 10/04/17 09:24 Dose: 5 mg Pantoprazole Sodium (Protonix Inj) 40 mg IVP DAILY [facility] Last Admin: 10/04/17 09:19 Dose: 40 mg Potassium Chloride (Klor-Con 10) 10 meq PO BRK [facility] Last Admin: 10/05/17 08:22 Dose: 10 meq Primidone (Mysoline) 50 mg PO DAILY [facility] Last Admin: 10/04/17 09:25 Dose: 50 mg Rosuvastatin Calcium (Crestor) 5 mg PO HS [facility] Last Admin: 10/04/17 22:00 Dose: 5 mg Saccharomyces Boulardii (Florastor) 250 mg PO BID [facility] Last Admin: 10/04/17 17:42 Dose: 250 mg Tamsulosin HCl (Flomax) 0.4 mg PO DAILY [facility] Last Admin: 10/04/17 09:23 Dose: 0.4 mg - Labs Labs: 10/05/17 07:57 10/05/17 07:57 - Constitutional Appears: Non-toxic, No Acute Distress - Head Exam Head Exam: ATRAUMATIC, NORMOCEPHALIC - Eye Exam Eye Exam: EOMI, Normal appearance - ENT Exam ENT Exam: Mucous Membranes Moist - Respiratory Exam Respiratory Exam: NORMAL BREATHING PATTERN. absent: Accessory Muscle Use, Respiratory Distress - Cardiovascular Exam Cardiovascular Exam: REGULAR RHYTHM, +S1, +S2 - GI/Abdominal Exam GI & Abdominal Exam: Soft. absent: Distended, Firm, Guarding, Rigid, Tenderness - Extremities Exam Extremities Exam: absent: Calf Tenderness, Pedal Edema - Back Exam Back Exam: absent: CVA tenderness (L), CVA tenderness (R) - Neurological Exam Neurological Exam: Alert, Awake, CN II-XII Intact, Oriented x3 - Psychiatric Exam Psychiatric exam: Normal Affect, Normal Mood - Skin Skin Exam: Dry, Warm Assessment and Plan - Assessment and Plan (Free Text) Plan: UTI Urine culture positive for E. Coli WBC 6.7 resolved - no bands afebrile Blood cultures 09/30 - no growth at 4 days repeat blood cultures 10/02 - no growth for [address] Perez, ID, consulted help appreciated * abx per ID * Cefepime 1gm IVPB q12h started 10/02 Dr. Pau Walker, urology, consulted help appreciated * pending uro work up * f/u recs Influenza, positive afebrile Tamiflu 75mg PO BID - completed NS at 75 cc/hour - discontinued Chest X ray - no active disease discontinue contact Hypokalemia 3.4 today supplemented BPH Flomax 0.4mg PO daily DM Glipizide 5mg PO daily accuchecks ACHS ISS Hypoglycemia protocol CKD Ergocalciferol 1 cap PO weekly (last dose 10/01) Proscar 1mg PO daily Anemia likely due to chronic disease/fe def Ferrous Sulfate 235mg PO daily HTN Bistolic 20mg PO daily Losartan 100mg PO daily Amlodipine 10mg PO daily Hydralazine 25mg PO BID Clonidine 0.1mg IVP q8h prn SBP>160 HLD Lovaza 1gram PO daily Crestor 5mg PO HS Gout Colocrys 0.6mg PO daily Prophylactic Measures Protonix 40mg IVP daily Heart healthy diet SCDs Heparin 5000 U SC Q12 DISPO: Hopeful discharge home tomorrow if Urology clears patient. All management and orders per Dr. Jonna Humphrey
[2017-10-05] MEDS: Saccharomyces Boulardi 250 mg Cap PO SCH ×2 (10:02→17:29)
[2017-10-05] MEDS: Omega-3-Acid Ethyl Esters 1 GM Cap PO SCH (10:03)
--- NOTE | 2017-10-05 11:37 | CP.PCM.PN ---
Subjective - Date & Time of Evaluation Date of Evaluation: 10/05/17 Time of Evaluation: 07:00 - Subjective Subjective: tamiflu completed eval in progress Objective - Vital Signs/Intake and Output Vital Signs (last 24 hours): Temp Pulse Resp BP Pulse Ox 98.2 F 61 20 174/90 H 99 10/05/17 07:50 10/05/17 07:50 10/05/17 07:50 10/05/17 07:50 10/05/17 07:50 Intake and Output: 10/05/17 10/05/17 06:59 18:59 Intake Total 740 850 Output Total 800 Balance 740 50 - Medications Medications: Current Medications Acetaminophen (Tylenol 325mg Tab) 650 mg PO Q6 PRN PRN Reason: Fever >100.4 F Last Admin: 10/02/17 17:53 Dose: 650 mg Amlodipine Besylate (Norvasc) 10 mg PO DAILY [facility] Last Admin: 10/05/17 10:03 Dose: 10 mg Clonidine HCl (Catapres) 0.1 mg PO Q8H PRN PRN Reason: Systolic Blood Pressure Last Admin: 10/05/17 00:18 Dose: 0.1 mg Colchicine (Colocrys) 0.6 mg PO TTS [facility] Last Admin: 10/03/17 10:22 Dose: 0.6 mg Dextrose (Dextrose 50% Inj) 0 ml IV STAT PRN; Protocol PRN Reason: Hypoglycemia Protocol Dextrose (Glutose 15) 15 gm PO ONCE PRN; Protocol PRN Reason: Hypoglycemia Protocol Ergocalciferol (Drisdol 50,000 Intl Units Cap) 1 cap PO QWK [facility] Last Admin: 10/01/17 09:11 Dose: 1 cap Ferrous Sulfate (Feosol) 325 mg PO DAILY [facility] Last Admin: 10/05/17 10:03 Dose: 325 mg Finasteride (Proscar) 5 mg PO DAILY [facility] Last Admin: 10/05/17 10:35 Dose: 5 mg Glipizide (Glucotrol) 5 mg PO DAILY [facility] Last Admin: 10/05/17 10:02 Dose: 5 mg Glucagon (Glucagen Diagnostic Kit) 1 mg IM STAT PRN; Protocol PRN Reason: Hypoglycemia Protocol Heparin Sodium (Porcine) (Heparin) 5,000 units SC Q12 [facility] Last Admin: 10/05/17 10:02 Dose: 5,000 units Dextrose (Dextrose 5% In Water 1000 Ml) 1,000 mls @ 0 mls/hr IV .Q0M PRN; Protocol; Per Protocol PRN Reason: Hypoglycemia Protocol Cefepime HCl 1 gm/ Dextrose 50 mls @ 100 mls/hr IVPB Q12H [facility] PRN Reason: Protocol Last Admin: 10/05/17 05:43 Dose: 100 mls/hr Sodium Chloride (Sodium Chloride 0.9%) 1,000 mls @ 75 mls/hr IV .[id number] [facility] Last Admin: 10/05/17 05:30 Dose: Not Given Insulin Human Regular (Novolin R) 0 unit SC ACHS [facility] PRN Reason: Protocol Last Admin: 10/05/17 08:07 Dose: Not Given Nebivolol (Bystolic) 20 mg PO DAILY [facility] Last Admin: 10/05/17 10:03 Dose: 20 mg Uigvp-5-Iyfq Ethyl Esters (Lovaza) 1 gm PO DAILY [facility] Last Admin: 10/05/17 10:03 Dose: 1 gm Oxybutynin Chloride (Ditropan Tab) 5 mg PO DAILY [facility] Last Admin: 10/05/17 10:03 Dose: 5 mg Pantoprazole Sodium (Protonix Inj) 40 mg IVP DAILY [facility] Last Admin: 10/05/17 10:02 Dose: 40 mg Potassium Chloride (Klor-Con 10) 10 meq PO BRK [facility] Last Admin: 10/05/17 08:22 Dose: 10 meq Primidone (Mysoline) 50 mg PO DAILY [facility] Last Admin: 10/05/17 10:03 Dose: 50 mg Rosuvastatin Calcium (Crestor) 5 mg PO HS [facility] Last Admin: 10/04/17 22:00 Dose: 5 mg Saccharomyces Boulardii (Florastor) 250 mg PO BID [facility] Last Admin: 10/05/17 10:02 Dose: 250 mg Tamsulosin HCl (Flomax) 0.4 mg PO DAILY [facility] Last Admin: 10/05/17 10:02 Dose: 0.4 mg - Labs Labs: 10/05/17 07:57 10/05/17 07:57 - Constitutional Appears: Non-toxic - Head Exam Head Exam: NORMOCEPHALIC - Eye Exam Eye Exam: PERRL - ENT Exam ENT Exam: Mucous Membranes Dry - Neck Exam Neck Exam: absent: Lymphadenopathy - Respiratory Exam Respiratory Exam: Decreased Breath Sounds - Cardiovascular Exam Cardiovascular Exam: REGULAR RHYTHM - GI/Abdominal Exam GI & Abdominal Exam: Distended Assessment and Plan (1) Complicated urinary tract infection Status: Acute (2) Fever Status: Acute (3) Influenza-like illness Status: Acute
--- NOTE | 2017-10-05 11:48 | CP.PCM.PN ---
Subjective - Date & Time of Evaluation Date of Evaluation: 10/05/17 Time of Evaluation: 11:45 - Subjective Subjective: on treatment for UTI c/o urinary frequency afebrile, HTN elevated less diarrhea not dyspneic AMEE improved Objective - Vital Signs/Intake and Output Vital Signs (last 24 hours): Temp Pulse Resp BP Pulse Ox 98.2 F 61 20 174/90 H 99 10/05/17 07:50 10/05/17 07:50 10/05/17 07:50 10/05/17 07:50 10/05/17 07:50 Intake and Output: 10/05/17 10/05/17 06:59 18:59 Intake Total 740 850 Output Total 800 Balance 740 50 - Medications Medications: Current Medications Acetaminophen (Tylenol 325mg Tab) 650 mg PO Q6 PRN PRN Reason: Fever >100.4 F Last Admin: 10/02/17 17:53 Dose: 650 mg Amlodipine Besylate (Norvasc) 10 mg PO DAILY [facility] Last Admin: 10/05/17 10:03 Dose: 10 mg Clonidine HCl (Catapres) 0.1 mg PO Q8H PRN PRN Reason: Systolic Blood Pressure Last Admin: 10/05/17 00:18 Dose: 0.1 mg Colchicine (Colocrys) 0.6 mg PO TTS [facility] Last Admin: 10/03/17 10:22 Dose: 0.6 mg Dextrose (Dextrose 50% Inj) 0 ml IV STAT PRN; Protocol PRN Reason: Hypoglycemia Protocol Dextrose (Glutose 15) 15 gm PO ONCE PRN; Protocol PRN Reason: Hypoglycemia Protocol Ergocalciferol (Drisdol 50,000 Intl Units Cap) 1 cap PO QWK [facility] Last Admin: 10/01/17 09:11 Dose: 1 cap Ferrous Sulfate (Feosol) 325 mg PO DAILY [facility] Last Admin: 10/05/17 10:03 Dose: 325 mg Finasteride (Proscar) 5 mg PO DAILY [facility] Last Admin: 10/05/17 10:35 Dose: 5 mg Glipizide (Glucotrol) 5 mg PO DAILY [facility] Last Admin: 10/05/17 10:02 Dose: 5 mg Glucagon (Glucagen Diagnostic Kit) 1 mg IM STAT PRN; Protocol PRN Reason: Hypoglycemia Protocol Heparin Sodium (Porcine) (Heparin) 5,000 units SC Q12 [facility] Last Admin: 10/05/17 10:02 Dose: 5,000 units Dextrose (Dextrose 5% In Water 1000 Ml) 1,000 mls @ 0 mls/hr IV .Q0M PRN; Protocol; Per Protocol PRN Reason: Hypoglycemia Protocol Cefepime HCl 1 gm/ Dextrose 50 mls @ 100 mls/hr IVPB Q12H [facility] PRN Reason: Protocol Last Admin: 10/05/17 05:43 Dose: 100 mls/hr Sodium Chloride (Sodium Chloride 0.9%) 1,000 mls @ 75 mls/hr IV .[id number] [facility] Last Admin: 10/05/17 05:30 Dose: Not Given Insulin Human Regular (Novolin R) 0 unit SC ACHS [facility] PRN Reason: Protocol Last Admin: 10/05/17 08:07 Dose: Not Given Nebivolol (Bystolic) 20 mg PO DAILY [facility] Last Admin: 10/05/17 10:03 Dose: 20 mg Vsjam-2-Zjcr Ethyl Esters (Lovaza) 1 gm PO DAILY [facility] Last Admin: 10/05/17 10:03 Dose: 1 gm Oxybutynin Chloride (Ditropan Tab) 5 mg PO DAILY [facility] Last Admin: 10/05/17 10:03 Dose: 5 mg Pantoprazole Sodium (Protonix Inj) 40 mg IVP DAILY [facility] Last Admin: 10/05/17 10:02 Dose: 40 mg Potassium Chloride (Klor-Con 10) 10 meq PO BRK [facility] Last Admin: 10/05/17 08:22 Dose: 10 meq Primidone (Mysoline) 50 mg PO DAILY [facility] Last Admin: 10/05/17 10:03 Dose: 50 mg Rosuvastatin Calcium (Crestor) 5 mg PO HS [facility] Last Admin: 10/04/17 22:00 Dose: 5 mg Saccharomyces Boulardii (Florastor) 250 mg PO BID [facility] Last Admin: 10/05/17 10:02 Dose: 250 mg Tamsulosin HCl (Flomax) 0.4 mg PO DAILY [facility] Last Admin: 10/05/17 10:02 Dose: 0.4 mg - Labs Labs: 10/05/17 07:57 10/05/17 07:57 - Constitutional Appears: In Acute Distress, Chronically Ill - Head Exam Head Exam: ATRAUMATIC, NORMAL INSPECTION - Eye Exam Eye Exam: EOMI, Normal appearance - Neck Exam Neck Exam: Normal Inspection. absent: Tenderness - Respiratory Exam Respiratory Exam: Clear to Ausculation Bilateral, NORMAL BREATHING PATTERN - Cardiovascular Exam Cardiovascular Exam: REGULAR RHYTHM, +S1 - GI/Abdominal Exam GI & Abdominal Exam: Soft. absent: Tenderness - Extremities Exam Extremities Exam: Normal Inspection. absent: Tenderness - Neurological Exam Neurological Exam: Awake, CN II-XII Intact - Skin Skin Exam: Dry, Warm Assessment and Plan (1) Complicated urinary tract infection Status: Acute (2) Influenza-like illness Status: Acute (3) Hypertension Status: Acute - Assessment and Plan (Free Text) Plan: replete K increase BP control follow up lytes
[2017-10-05] MEDS ORDERED: Potassium Chloride 20 mEq/15 ml LIQ UD PO ONE (12:00)
[2017-10-05] MEDS ORDERED: Sodium Chloride 0.9% 1,000 ML IV SCH (14:07)
--- NOTE | 2017-10-05 17:12 | CP.PCM.PN ---
Subjective - Date & Time of Evaluation Date of Evaluation: 10/05/17 Time of Evaluation: 08:00 - Subjective Subjective: clinically same Objective - Vital Signs/Intake and Output Vital Signs (last 24 hours): Temp Pulse Resp BP Pulse Ox 98.2 F 61 20 170/75 H 99 10/05/17 07:50 10/05/17 07:50 10/05/17 07:50 10/05/17 12:20 10/05/17 07:50 Intake and Output: 10/05/17 10/05/17 06:59 18:59 Intake Total 740 1950 Output Total 800 Balance 740 1150 - Medications Medications: Current Medications Acetaminophen (Tylenol 325mg Tab) 650 mg PO Q6 PRN PRN Reason: Fever >100.4 F Last Admin: 10/02/17 17:53 Dose: 650 mg Amlodipine Besylate (Norvasc) 10 mg PO DAILY [facility] Last Admin: 10/05/17 10:03 Dose: 10 mg Clonidine HCl (Catapres) 0.1 mg PO Q8H PRN PRN Reason: Systolic Blood Pressure Last Admin: 10/05/17 12:22 Dose: 0.1 mg Colchicine (Colocrys) 0.6 mg PO TTS [facility] Last Admin: 10/03/17 10:22 Dose: 0.6 mg Dextrose (Dextrose 50% Inj) 0 ml IV STAT PRN; Protocol PRN Reason: Hypoglycemia Protocol Dextrose (Glutose 15) 15 gm PO ONCE PRN; Protocol PRN Reason: Hypoglycemia Protocol Ergocalciferol (Drisdol 50,000 Intl Units Cap) 1 cap PO QWK [facility] Last Admin: 10/01/17 09:11 Dose: 1 cap Ferrous Sulfate (Feosol) 325 mg PO DAILY [facility] Last Admin: 10/05/17 10:03 Dose: 325 mg Finasteride (Proscar) 5 mg PO DAILY [facility] Last Admin: 10/05/17 10:35 Dose: 5 mg Glipizide (Glucotrol) 5 mg PO DAILY [facility] Last Admin: 10/05/17 10:02 Dose: 5 mg Glucagon (Glucagen Diagnostic Kit) 1 mg IM STAT PRN; Protocol PRN Reason: Hypoglycemia Protocol Heparin Sodium (Porcine) (Heparin) 5,000 units SC Q12 [facility] Last Admin: 10/05/17 10:02 Dose: 5,000 units Hydralazine HCl (Apresoline) 25 mg PO BID [facility] Dextrose (Dextrose 5% In Water 1000 Ml) 1,000 mls @ 0 mls/hr IV .Q0M PRN; Protocol; Per Protocol PRN Reason: Hypoglycemia Protocol Cefepime HCl 1 gm/ Dextrose 50 mls @ 100 mls/hr IVPB Q12H [facility] PRN Reason: Protocol Last Admin: 10/05/17 05:43 Dose: 100 mls/hr Insulin Human Regular (Novolin R) 0 unit SC ACHS [facility] PRN Reason: Protocol Last Admin: 10/05/17 16:53 Dose: Not Given Nebivolol (Bystolic) 20 mg PO DAILY [facility] Last Admin: 10/05/17 10:03 Dose: 20 mg Qehbn-4-Empt Ethyl Esters (Lovaza) 1 gm PO DAILY [facility] Last Admin: 10/05/17 10:03 Dose: 1 gm Oxybutynin Chloride (Ditropan Tab) 5 mg PO DAILY [facility] Last Admin: 10/05/17 10:03 Dose: 5 mg Pantoprazole Sodium (Protonix Inj) 40 mg IVP DAILY [facility] Last Admin: 10/05/17 10:02 Dose: 40 mg Potassium Chloride (Klor-Con 10) 10 meq PO BRK [facility] Last Admin: 10/05/17 08:22 Dose: 10 meq Primidone (Mysoline) 50 mg PO DAILY [facility] Last Admin: 10/05/17 10:03 Dose: 50 mg Rosuvastatin Calcium (Crestor) 5 mg PO HS [facility] Last Admin: 10/04/17 22:00 Dose: 5 mg Saccharomyces Boulardii (Florastor) 250 mg PO BID [facility] Last Admin: 10/05/17 10:02 Dose: 250 mg Tamsulosin HCl (Flomax) 0.4 mg PO DAILY [facility] Last Admin: 10/05/17 10:02 Dose: 0.4 mg - Labs Labs: 10/05/17 07:57 10/05/17 07:57 - Constitutional Appears: Well - Head Exam Head Exam: ATRAUMATIC, NORMAL INSPECTION, NORMOCEPHALIC - Eye Exam Eye Exam: EOMI, Normal appearance, PERRL Pupil Exam: NORMAL ACCOMODATION, PERRL - ENT Exam ENT Exam: Mucous Membranes Moist, Normal Exam - Neck Exam Neck Exam: Full ROM, Normal Inspection. absent: Lymphadenopathy - Respiratory Exam Respiratory Exam: Decreased Breath Sounds - Cardiovascular Exam Cardiovascular Exam: REGULAR RHYTHM, +S1, +S2 - GI/Abdominal Exam GI & Abdominal Exam: Soft, Diminished Bowel Sounds - Rectal Exam Rectal Exam: Deferred
--- NOTE | 2017-10-06 06:23 | CARD ---
APPROVED REPORT EKG Measurement Heart [id number] <Conclusion> Normal sinus rhythm Possible Left atrial enlargement minimal voltage criteria for LVH Borderline ECG
[2017-10-06] MEDS: (Novolin R) Insulin Human Regular 100 units/ml vial SC SCH ×3 (07:34→16:53)
[2017-10-06 07:38] LABS: BASO % 0.7 % (0.0-2.0); EOS # 0.2 K/uL (0.0-0.7); EOS % 2.4 % (0.0-4.0); HEMOGLOBIN 11.6 g/dL (12.0-18.0); LYMPH # 2.5 K/uL (1.0-4.3); LYMPH % 39.9 % (20.0-40.0); MEAN CELL VOLUME 66.2 fL (80.0-94.0); MEAN CORPUSCULAR HGB CONC 33.3 g/dL (33.0-37.0); MEAN PLATELET VOLUME 9.1 fL (7.2-11.7); MONO % 15.4 % (0.0-10.0); NEUT # 2.6 K/uL (1.8-7.0); NEUT % 41.6 % (50.0-75.0); NRBC % 0.1 % (0.0-2.0); RBC 5.28 Mil/uL (4.40-5.90); RED CELL DISTRIBUTION WIDTH 16.6 % (11.5-14.5); WHITE BLOOD COUNT 6.2 K/uL (4.8-10.8)
[2017-10-06 07:56] LABS: ALBUMIN 3.3 g/dL (3.5-5.0); ALT/SGPT 64 U/L (21-72); AST/SGOT 60 U/L (17-59); BLOOD UREA NITROGEN 27 mg/dL (9-20); CALCIUM 8.6 mg/dl (8.6-10.4); GFR AFRICAN-AMERICAN > 60; GFR NON-AFRICAN AMERICAN 54
--- NOTE | 2017-10-06 08:34 | CP.PCM.PN ---
Subjective - Date & Time of Evaluation Date of Evaluation: 10/06/17 Time of Evaluation: 07:00 - Subjective Subjective: PGY2 Medicine Note for Dr. Jonna Humphrey Patient seen and examined this morning at bedside. Patient reports hesitancy to start flow of his urination. He denies any pain with urination but is still experiencing dribbling. Patient's blood pressure is still elevated but he denies any headaches, difficulty with balance or visual changes. Patient denies diarrhea and states he had a normal bowel movement this morning. Denies fevers, chills, nausea, vomiting, constipation, chest pain, shortness of breath, palpitations, abdominal pain. Objective - Vital Signs/Intake and Output Vital Signs (last 24 hours): Temp Pulse Resp BP Pulse Ox 98.1 F 61 20 177/99 H 97 10/06/17 07:00 10/06/17 07:00 10/06/17 07:00 10/06/17 07:00 10/06/17 07:00 Intake and Output: 10/06/17 10/06/17 06:59 18:59 Intake Total 770 Balance 770 - Medications Medications: Current Medications Acetaminophen (Tylenol 325mg Tab) 650 mg PO Q6 PRN PRN Reason: Fever >100.4 F Last Admin: 10/02/17 17:53 Dose: 650 mg Amlodipine Besylate (Norvasc) 10 mg PO DAILY [facility] Last Admin: 10/05/17 10:03 Dose: 10 mg Clonidine HCl (Catapres) 0.1 mg PO Q8H PRN PRN Reason: Systolic Blood Pressure Last Admin: 10/05/17 23:49 Dose: 0.1 mg Colchicine (Colocrys) 0.6 mg PO TTS [facility] Last Admin: 10/03/17 10:22 Dose: 0.6 mg Dextrose (Dextrose 50% Inj) 0 ml IV STAT PRN; Protocol PRN Reason: Hypoglycemia Protocol Dextrose (Glutose 15) 15 gm PO ONCE PRN; Protocol PRN Reason: Hypoglycemia Protocol Ergocalciferol (Drisdol 50,000 Intl Units Cap) 1 cap PO QWK [facility] Last Admin: 10/01/17 09:11 Dose: 1 cap Ferrous Sulfate (Feosol) 325 mg PO DAILY [facility] Last Admin: 10/05/17 10:03 Dose: 325 mg Finasteride (Proscar) 5 mg PO DAILY [facility] Last Admin: 10/05/17 10:35 Dose: 5 mg Glipizide (Glucotrol) 5 mg PO DAILY [facility] Last Admin: 10/05/17 10:02 Dose: 5 mg Glucagon (Glucagen Diagnostic Kit) 1 mg IM STAT PRN; Protocol PRN Reason: Hypoglycemia Protocol Heparin Sodium (Porcine) (Heparin) 5,000 units SC Q12 [facility] Last Admin: 10/05/17 21:38 Dose: 5,000 units Hydralazine HCl (Apresoline) 25 mg PO BID [facility] Last Admin: 10/05/17 17:29 Dose: 25 mg Dextrose (Dextrose 5% In Water 1000 Ml) 1,000 mls @ 0 mls/hr IV .Q0M PRN; Protocol; Per Protocol PRN Reason: Hypoglycemia Protocol Cefepime HCl 1 gm/ Dextrose 50 mls @ 100 mls/hr IVPB Q12H [facility] PRN Reason: Protocol Last Admin: 10/06/17 06:04 Dose: 100 mls/hr Insulin Human Regular (Novolin R) 0 unit SC ACHS [facility] PRN Reason: Protocol Last Admin: 10/06/17 07:34 Dose: Not Given Nebivolol (Bystolic) 20 mg PO DAILY [facility] Last Admin: 10/05/17 10:03 Dose: 20 mg Gbhtg-4-Tlpq Ethyl Esters (Lovaza) 1 gm PO DAILY [facility] Last Admin: 10/05/17 10:03 Dose: 1 gm Oxybutynin Chloride (Ditropan Tab) 5 mg PO DAILY [facility] Last Admin: 10/05/17 10:03 Dose: 5 mg Pantoprazole Sodium (Protonix Inj) 40 mg IVP DAILY [facility] Last Admin: 10/05/17 10:02 Dose: 40 mg Potassium Chloride (Klor-Con 10) 10 meq PO BRK [facility] Last Admin: 10/05/17 08:22 Dose: 10 meq Primidone (Mysoline) 50 mg PO DAILY [facility] Last Admin: 10/05/17 10:03 Dose: 50 mg Rosuvastatin Calcium (Crestor) 5 mg PO HS [facility] Last Admin: 10/05/17 21:38 Dose: 5 mg Saccharomyces Boulardii (Florastor) 250 mg PO BID [facility] Last Admin: 10/05/17 17:29 Dose: 250 mg Tamsulosin HCl (Flomax) 0.4 mg PO DAILY [facility] Last Admin: 10/05/17 10:02 Dose: 0.4 mg - Labs Labs: 10/06/17 07:26 10/06/17 07:26 - Constitutional Appears: No Acute Distress - Head Exam Head Exam: ATRAUMATIC, NORMAL INSPECTION - Eye Exam Eye Exam: EOMI, Normal appearance, PERRL Pupil Exam: NORMAL ACCOMODATION - ENT Exam ENT Exam: Mucous Membranes Moist - Respiratory Exam Respiratory Exam: Clear to Ausculation Bilateral, NORMAL BREATHING PATTERN - Cardiovascular Exam Cardiovascular Exam: REGULAR RHYTHM, +S1, +S2 - GI/Abdominal Exam GI & Abdominal Exam: Soft, Normal Bowel Sounds. absent: Tenderness - Extremities Exam Extremities Exam: Normal Inspection - Neurological Exam Neurological Exam: Alert, Awake, Oriented x3 - Psychiatric Exam Psychiatric exam: Normal Affect, Normal Mood - Skin Skin Exam: Normal Color Assessment and Plan - Assessment and Plan (Free Text) Assessment: UTI Urine culture positive for E. Coli f/u repeat urine culture WBC 6.7 resolved - no bands afebrile Blood cultures 09/30 - no growth at 4 days repeat blood cultures 10/02 - no growth for [address] Perez, ID, consulted help appreciated * abx per ID * Cefepime 1gm IVPB q12h started 10/02 * Discussed with Dr. Perez when patient is cleared for discharge: Cipro 500mg q12h for [address] Pau Walker, urology, consulted help appreciated * Abd/Bladder US: Echogenic liver likely due to fatty infiltration however other infiltrative hepatic cellular disease process not excluded. Bilateral renal cysts as described. * Pelvis US: Enlarged prostate gland. Small prevoid and minimal postvoid residual as described. Urinary bladder wall is thickened likely due to incomplete distention. No definitive evidence of discrete wall masses or intraluminal calculi. * Abd/Pelvis CT: Very small bilateral pleural effusions. Normal CT urogram. Large bilateral renal cysts as described above. Heterogeneous enlarged prostate. Underdistended bladder with mild surrounding hazy change may be related to chronic bladder outlet obstruction hand infection. Correlate clinically. Influenza, positive afebrile Tamiflu 75mg PO BID - completed NS at 75 cc/hour - discontinued Chest X ray - no active disease discontinue contact Hypokalemia - resolved Continue to monitor BPH Flomax 0.4mg PO daily DM Glipizide 5mg PO daily accuchecks ACHS ISS Hypoglycemia protocol CKD Ergocalciferol 1 cap PO weekly (last dose 10/01) Proscar 1mg PO daily Anemia likely due to chronic disease/fe def Ferrous Sulfate 235mg PO daily HTN Bistolic 20mg PO daily Losartan 100mg PO daily Amlodipine 10mg PO daily Hydralazine 50mg PO BID Clonidine 0.1mg IVP q8h prn SBP>160 HLD Lovaza 1gram PO daily Crestor 5mg PO HS Gout Colocrys 0.6mg PO daily Prophylactic Measures Protonix 40mg IVP daily Heart healthy diet SCDs Heparin 5000 U SC Q12 DISPO: Patient stable for discharge home. Patient to follow up with Dr. Jonna Humphrey on Thursday10/09/17 to follow up with repeat urine culture. Patient to be discharged with Ciprofloxacin 500mg q12h for 10 days All management and orders per Dr. Jonna Humphrey
[2017-10-06] MEDS: Potassium Chloride 10 mEq ER Tab PO SCH (08:44)
[2017-10-06] MEDS: Omega-3-Acid Ethyl Esters 1 GM Cap PO SCH (10:02)
[2017-10-06] MEDS: Saccharomyces Boulardi 250 mg Cap PO SCH ×2 (10:02→17:01)
--- NOTE | 2017-10-06 10:29 | CP.PCM.PN ---
Subjective - Date & Time of Evaluation Date of Evaluation: 10/06/17 Time of Evaluation: 10:27 - Subjective Subjective: feels better less urinary frequency afebrile now HTN still uncontrolled Objective - Vital Signs/Intake and Output Vital Signs (last 24 hours): Temp Pulse Resp BP Pulse Ox 98.1 F 61 20 177/99 H 97 10/06/17 07:00 10/06/17 07:00 10/06/17 07:00 10/06/17 07:00 10/06/17 07:00 Intake and Output: 10/06/17 10/06/17 06:59 18:59 Intake Total 770 Balance 770 - Medications Medications: Current Medications Acetaminophen (Tylenol 325mg Tab) 650 mg PO Q6 PRN PRN Reason: Fever >100.4 F Last Admin: 10/02/17 17:53 Dose: 650 mg Amlodipine Besylate (Norvasc) 10 mg PO DAILY@0800 [facility] Last Admin: 10/06/17 09:16 Dose: 10 mg Clonidine HCl (Catapres) 0.1 mg PO Q8H PRN PRN Reason: Systolic Blood Pressure Last Admin: 10/05/17 23:49 Dose: 0.1 mg Colchicine (Colocrys) 0.6 mg PO TTS [facility] Last Admin: 10/06/17 10:06 Dose: 0.6 mg Dextrose (Dextrose 50% Inj) 0 ml IV STAT PRN; Protocol PRN Reason: Hypoglycemia Protocol Dextrose (Glutose 15) 15 gm PO ONCE PRN; Protocol PRN Reason: Hypoglycemia Protocol Ergocalciferol (Drisdol 50,000 Intl Units Cap) 1 cap PO QWK [facility] Last Admin: 10/01/17 09:11 Dose: 1 cap Ferrous Sulfate (Feosol) 325 mg PO DAILY [facility] Last Admin: 10/06/17 10:02 Dose: 325 mg Finasteride (Proscar) 5 mg PO DAILY [facility] Last Admin: 10/06/17 10:06 Dose: 5 mg Glipizide (Glucotrol) 5 mg PO DAILY [facility] Last Admin: 10/06/17 10:02 Dose: 5 mg Glucagon (Glucagen Diagnostic Kit) 1 mg IM STAT PRN; Protocol PRN Reason: Hypoglycemia Protocol Heparin Sodium (Porcine) (Heparin) 5,000 units SC Q12 [facility] Last Admin: 10/06/17 10:03 Dose: 5,000 units Hydralazine HCl (Apresoline) 50 mg PO BID [facility] Dextrose (Dextrose 5% In Water 1000 Ml) 1,000 mls @ 0 mls/hr IV .Q0M PRN; Protocol; Per Protocol PRN Reason: Hypoglycemia Protocol Cefepime HCl 1 gm/ Dextrose 50 mls @ 100 mls/hr IVPB Q12H [facility] PRN Reason: Protocol Last Admin: 10/06/17 06:04 Dose: 100 mls/hr Insulin Human Regular (Novolin R) 0 unit SC ACHS [facility] PRN Reason: Protocol Last Admin: 10/06/17 07:34 Dose: Not Given Nebivolol (Bystolic) 20 mg PO DAILY [facility] Last Admin: 10/06/17 10:06 Dose: 20 mg Cbabk-1-Kwur Ethyl Esters (Lovaza) 1 gm PO DAILY [facility] Last Admin: 10/06/17 10:02 Dose: 1 gm Oxybutynin Chloride (Ditropan Tab) 5 mg PO DAILY [facility] Last Admin: 10/06/17 10:06 Dose: 5 mg Pantoprazole Sodium (Protonix Inj) 40 mg IVP DAILY [facility] Last Admin: 10/06/17 10:02 Dose: 40 mg Potassium Chloride (Klor-Con 10) 10 meq PO BRK [facility] Last Admin: 10/06/17 08:44 Dose: 10 meq Primidone (Mysoline) 50 mg PO DAILY [facility] Last Admin: 10/06/17 10:06 Dose: 50 mg Rosuvastatin Calcium (Crestor) 5 mg PO HS [facility] Last Admin: 10/05/17 21:38 Dose: 5 mg Saccharomyces Boulardii (Florastor) 250 mg PO BID [facility] Last Admin: 10/06/17 10:02 Dose: 250 mg Tamsulosin HCl (Flomax) 0.4 mg PO DAILY [facility] Last Admin: 10/06/17 10:02 Dose: 0.4 mg - Labs Labs: 10/06/17 07:26 10/06/17 07:26 - Constitutional Appears: No Acute Distress, Chronically Ill - Head Exam Head Exam: ATRAUMATIC, NORMAL INSPECTION - Eye Exam Eye Exam: EOMI, Normal appearance - Neck Exam Neck Exam: Normal Inspection. absent: Tenderness - Respiratory Exam Respiratory Exam: Clear to Ausculation Bilateral, NORMAL BREATHING PATTERN - Cardiovascular Exam Cardiovascular Exam: REGULAR RHYTHM, +S1 - GI/Abdominal Exam GI & Abdominal Exam: Soft. absent: Tenderness - Extremities Exam Extremities Exam: Normal Inspection. absent: Tenderness - Neurological Exam Neurological Exam: Alert, CN II-XII Intact - Skin Skin Exam: Dry, Warm Assessment and Plan (1) Complicated urinary tract infection Status: Acute (2) Influenza-like illness Status: Acute (3) Hypertension Status: Acute - Assessment and Plan (Free Text) Plan: Increase hydralazine dose rx UTI
[2017-10-06] MEDS ORDERED: Iodixanol 320 MG/ML 100 ML BOTTLE IV ONE (11:03)
--- NOTE | 2017-10-06 13:34 | CT ---
PROCEDURE: CT Abdomen and Pelvis with contrast HISTORY: hematuria COMPARISON: CT scan the abdomen pelvis dated 03/14/2016. TECHNIQUE: Contrast dose: 100 mL Visipaque 320 Radiation dose: Total exam DLP = 1248.4 MGy-cm. This CT exam was performed using one or more of the following dose reduction techniques: Automated exposure control, adjustment of the mA and/or kV according to patient size, and/or use of iterative reconstruction technique. FINDINGS: LOWER THORAX: Very small bilateral pleural effusions. LIVER: Unremarkable. No gross lesion or ductal dilatation. GALLBLADDER AND BILE DUCTS: Unremarkable. PANCREAS: Unremarkable. No gross lesion or ductal dilatation. SPLEEN: Unremarkable. ADRENALS: Unremarkable. No mass. KIDNEYS AND URETERS: Large bilateral renal cysts, with right midpole cyst measuring 7.0 x 5.9 cm and lower pole cyst measuring 6.5 x 5.2 cm and left interpolar cyst measuring 5.7 x 5.4 cm. No hydronephrosis. No collecting or ureteral system masses. No solid mass. VASCULATURE: Unremarkable. No aortic aneurysm. BOWEL: Small hiatal hernia. No obstruction. No gross mural thickening. APPENDIX: Normal appendix. PERITONEUM: Fat containing umbilical hernia. Small fat containing left inguinal hernia. No free fluid. No free air. LYMPH NODES: Unremarkable. No enlarged lymph nodes. BLADDER: Bladder underdistention limits evaluation for wall thickening. Mild surrounding hazy change. REPRODUCTIVE: Heterogeneous prostatomegaly. BONES: No acute fracture. OTHER FINDINGS: None. IMPRESSION: Very small bilateral pleural effusions. Normal CT urogram. Large bilateral renal cysts as described above. Heterogeneous enlarged prostate. Underdistended bladder with mild surrounding hazy change may be related to chronic bladder outlet obstruction hand infection. Correlate clinically. Additional findings as above.
--- NOTE | 2017-10-06 15:30 | CP.PCM.PN ---
Subjective - Date & Time of Evaluation Date of Evaluation: 10/06/17 Time of Evaluation: 07:30 - Subjective Subjective: clinically same Objective - Vital Signs/Intake and Output Vital Signs (last 24 hours): Temp Pulse Resp BP Pulse Ox 98.1 F 61 20 177/99 H 97 10/06/17 07:00 10/06/17 07:00 10/06/17 07:00 10/06/17 07:00 10/06/17 07:00 Intake and Output: 10/06/17 10/06/17 06:59 18:59 Intake Total 770 360 Balance 770 360 - Medications Medications: Current Medications Acetaminophen (Tylenol 325mg Tab) 650 mg PO Q6 PRN PRN Reason: Fever >100.4 F Last Admin: 10/02/17 17:53 Dose: 650 mg Amlodipine Besylate (Norvasc) 10 mg PO DAILY@0800 [facility] Last Admin: 10/06/17 09:16 Dose: 10 mg Clonidine HCl (Catapres) 0.1 mg PO Q8H PRN PRN Reason: Systolic Blood Pressure Last Admin: 10/05/17 23:49 Dose: 0.1 mg Colchicine (Colocrys) 0.6 mg PO TTS [facility] Last Admin: 10/06/17 10:06 Dose: 0.6 mg Dextrose (Dextrose 50% Inj) 0 ml IV STAT PRN; Protocol PRN Reason: Hypoglycemia Protocol Dextrose (Glutose 15) 15 gm PO ONCE PRN; Protocol PRN Reason: Hypoglycemia Protocol Ergocalciferol (Drisdol 50,000 Intl Units Cap) 1 cap PO QWK [facility] Last Admin: 10/01/17 09:11 Dose: 1 cap Ferrous Sulfate (Feosol) 325 mg PO DAILY [facility] Last Admin: 10/06/17 10:02 Dose: 325 mg Finasteride (Proscar) 5 mg PO DAILY [facility] Last Admin: 10/06/17 10:06 Dose: 5 mg Glipizide (Glucotrol) 5 mg PO DAILY [facility] Last Admin: 10/06/17 10:02 Dose: 5 mg Glucagon (Glucagen Diagnostic Kit) 1 mg IM STAT PRN; Protocol PRN Reason: Hypoglycemia Protocol Heparin Sodium (Porcine) (Heparin) 5,000 units SC Q12 [facility] Last Admin: 10/06/17 10:03 Dose: 5,000 units Hydralazine HCl (Apresoline) 50 mg PO BID [facility] Dextrose (Dextrose 5% In Water 1000 Ml) 1,000 mls @ 0 mls/hr IV .Q0M PRN; Protocol; Per Protocol PRN Reason: Hypoglycemia Protocol Cefepime HCl 1 gm/ Dextrose 50 mls @ 100 mls/hr IVPB Q12H [facility] PRN Reason: Protocol Last Admin: 10/06/17 06:04 Dose: 100 mls/hr Insulin Human Regular (Novolin R) 0 unit SC ACHS [facility] PRN Reason: Protocol Last Admin: 10/06/17 11:52 Dose: Not Given Nebivolol (Bystolic) 20 mg PO DAILY [facility] Last Admin: 10/06/17 10:06 Dose: 20 mg Vdtkn-5-Adzq Ethyl Esters (Lovaza) 1 gm PO DAILY [facility] Last Admin: 10/06/17 10:02 Dose: 1 gm Oxybutynin Chloride (Ditropan Tab) 5 mg PO DAILY [facility] Last Admin: 10/06/17 10:06 Dose: 5 mg Pantoprazole Sodium (Protonix Inj) 40 mg IVP DAILY [facility] Last Admin: 10/06/17 10:02 Dose: 40 mg Potassium Chloride (Klor-Con 10) 10 meq PO BRK [facility] Last Admin: 10/06/17 08:44 Dose: 10 meq Primidone (Mysoline) 50 mg PO DAILY [facility] Last Admin: 10/06/17 10:06 Dose: 50 mg Rosuvastatin Calcium (Crestor) 5 mg PO HS [facility] Last Admin: 10/05/17 21:38 Dose: 5 mg Saccharomyces Boulardii (Florastor) 250 mg PO BID [facility] Last Admin: 10/06/17 10:02 Dose: 250 mg Tamsulosin HCl (Flomax) 0.4 mg PO DAILY [facility] Last Admin: 10/06/17 10:02 Dose: 0.4 mg - Labs Labs: 10/06/17 07:26 10/06/17 07:26 - Constitutional Appears: Well - Head Exam Head Exam: ATRAUMATIC, NORMAL INSPECTION, NORMOCEPHALIC - Eye Exam Eye Exam: EOMI, Normal appearance, PERRL Pupil Exam: NORMAL ACCOMODATION, PERRL - ENT Exam ENT Exam: Mucous Membranes Moist, Normal Exam - Neck Exam Neck Exam: Full ROM, Normal Inspection. absent: Lymphadenopathy - Respiratory Exam Respiratory Exam: Decreased Breath Sounds - Cardiovascular Exam Cardiovascular Exam: REGULAR RHYTHM, +S1, +S2 - GI/Abdominal Exam GI & Abdominal Exam: Soft, Diminished Bowel Sounds - Rectal Exam Rectal Exam: Deferred
[2017-10-06 16:33] VITALS: BP 167/77; PULSE 57; TEMP 98.7; O2SAT 98
== END 2017-10-06 18:55 | disposition home or self-care (01) | DRG 872 ==
LOC: C.ER 13:20 → C.9E 15:53 → C.5S 17:31 → C.3T 10-05 01:09
PROVIDERS: ADMIT Internal Medicine Nephrology; ATTEND Internal Medicine Nephrology
DX: A41.9 Sepsis, unspecified organism (principal); N39.0 Urinary tract infection, site not specified; N17.9 Acute kidney failure, unspecified; J10.1 Influenza due to other identified influenza virus with other respiratory manifestations; R65.20 Severe sepsis without septic shock; I12.9 Hypertensive chronic kidney disease with stage 1 through stage 4 chronic kidney disease, or unspecified chronic kidney disease; E11.22 Type 2 diabetes mellitus with diabetic chronic kidney disease; N18.9 Chronic kidney disease, unspecified; D63.1 Anemia in chronic kidney disease; R32 Unspecified urinary incontinence; N40.1 Benign prostatic hyperplasia with lower urinary tract symptoms; M10.9 Gout, unspecified; E83.42 Hypomagnesemia; E87.6 Hypokalemia; Z79.4 Long term (current) use of insulin

== ENCOUNTER 2018-07-19 14:16 | Observation (INO) | payer MEDICARE, OTHER ==
[2018-07-19 14:29] VITALS: BMI 27.0
[2018-07-19 15:45] LABS: BASO # 0.1 K/uL (0.0-0.2); BASO % 1.7 % (0.0-2.0); EOS # 0.1 K/uL (0.0-0.7); EOS % 1.3 % (0.0-4.0); HEMOGLOBIN 10.5 g/dL (12.0-18.0); LYMPH # 1.3 K/uL (1.0-4.3); LYMPH % 30.9 % (20.0-40.0); MEAN CELL VOLUME 67.4 fL (80.0-94.0); MEAN CORPUSCULAR HEMOGLOBIN 22.3 pg (27.0-31.0); MEAN CORPUSCULAR HGB CONC 33.1 g/dL (33.0-37.0); MEAN PLATELET VOLUME 9.8 fL (7.2-11.7); MONO # 0.6 K/uL (0.0-0.8); MONO % 14.5 % (0.0-10.0); NEUT # 2.2 K/uL (1.8-7.0); NEUT % 51.6 % (50.0-75.0); NRBC % 0.1 % (0.0-2.0); RBC 4.69 Mil/uL (4.40-5.90); RED CELL DISTRIBUTION WIDTH 17.6 % (11.5-14.5); WHITE BLOOD COUNT 4.2 K/uL (4.8-10.8)
--- NOTE | 2018-07-19 16:03 | C.PDOC ---
History Of Present Illness 73 year old male with pmhx of BPH, HTN, DM, HLD, presenting to ED with complaints of right chest palpitations that awoke him at 1am and persisted throughout the night. and subsided around 7am this morning on their own. Pt reports forceful heart beats, loud enough to keep him up. Denies rapid heart beats, chest pain, nausea, dizziness, SOB. Patient reports new onset palpitations requiring use of monitor in June. Pt reports he was recently told he would need a pacemaker, but does not know why. Denies complaints currently. <Opal García - Last Filed: 07/19/18 17:00> History Per: Patient History/Exam Limitations: no limitations Onset/Duration Of Symptoms: Hrs Current Symptoms Are (Timing): Gone Severity: Moderate Quality: Other (loud/forceful palpitations) Associated Symptoms: denies: Nausea, Dyspnea, Diaphoresis, Syncope <Opal García - Last Filed: 07/19/18 17:00> <Taco Guerra DO - Last Filed: 07/20/18 00:25> Chief Complaint (Nursing): Chest Pain Past Medical History Reviewed: Historical Data, Nursing Documentation, Vital Signs Vital Signs: Last Vital Signs Temp 98.4 F 07/19/18 14:29 Pulse 74 07/19/18 15:31 Resp 16 07/19/18 15:31 BP 145/67 07/19/18 15:31 Pulse Ox 98 07/19/18 15:31 - Medical History PMH: Benign Prostatic Hyperplasia, Diabetes, HTN, Hyperlipidemia Denies: Chronic Kidney Disease - [facility] Procedures COLONOSCOPY (07/25/13) Family History: States: No Known Family Hx - Social History Hx Tobacco Use: No Hx Alcohol Use: No Hx Substance Use: No - Immunization History Hx Tetanus Toxoid Vaccination: No Hx Influenza Vaccination: Yes (02/2018) Hx Pneumococcal Vaccination: No <Opal García - Last Filed: 07/19/18 17:00> Vital Signs: Last Vital Signs Temp 98.2 F 07/19/18 23:31 Pulse 83 07/19/18 23:45 Resp 18 07/19/18 23:31 BP 163/69 H 07/19/18 23:31 Pulse Ox 95 07/19/18 23:31 - [facility] Procedures COLONOSCOPY (07/25/13) <Taco Guerra DO - Last Filed: 07/20/18 00:25> Review Of Systems Constitutional: Negative for: Sweats Eyes: Negative for: Vision Change Cardiovascular: Positive for: Palpitations. Negative for: Chest Pain, Orthopnea, Edema, Light Headedness Respiratory: Negative for: Cough, Shortness of Breath Genitourinary: Positive for: Other (chronic urinary retention) Neurological: Negative for: Weakness, Headache <Opal García - Last Filed: 07/19/18 17:00> Physical Exam - Physical Exam Appears: Non-toxic, No Acute Distress Skin: Normal Color, Warm, Dry Head: Atraumatic, Normacephalic Eye(s): bilateral: Normal Inspection, EOMI Cardiovascular: Rhythm Regular, No Edema, No Murmur Respiratory: Normal Breath Sounds Gastrointestinal/Abdominal: Bowel Sounds, Soft, No Tenderness Extremity: No Pedal Edema, No Calf Tenderness Neurological/Psych: Oriented x3 <Opal García - Last Filed: 07/19/18 17:00> ED Course And Treatment - Laboratory Results Result Diagrams: 07/19/18 15:35 07/19/18 15:35 Lab Interpretation: Abnormal Interpretation Of Abnormal: worsening Cr ECG: Viewed By Me ECG Rhythm: 1st Degree HB ECG Interpretation: Abnormal O2 Sat by Pulse Oximetry: 98 Pulse Ox Interpretation: Normal - Radiology CXR: Viewed By Me, Read By Radiologist CXR Interpretation: Yes: No Acute Disease <Opal García - Last Filed: 07/19/18 17:00> - Laboratory Results Result Diagrams: 07/19/18 15:35 07/19/18 15:35 Lab Results: Troponin I 0.0170 ng/mL (0.00-0.120) 07/19/18 15:35 NT-Pro-B Natriuret Pep 672 pg/mL (0-900) 07/19/18 15:35 Total Bilirubin 0.7 mg/dL (0.2-1.3) 07/19/18 15:35 AST 41 U/L (17-59) 07/19/18 15:35 ALT 10 U/L (21-72) L D 07/19/18 15:35 Alkaline Phosphatase 40 U/L (38-126) 07/19/18 15:35 Total Protein 7.8 g/dL (6.3-8.3) 07/19/18 15:35 Albumin 4.4 g/dL (3.5-5.0) 07/19/18 15:35 Globulin 3.4 gm/dL (2.2-3.9) 07/19/18 15:35 Albumin/Globulin Ratio 1.3 (1.0-2.1) 07/19/18 15:35 <Taco Guerra DO - Last Filed: 07/20/18 00:25> Medical Decision Making Medical Decision Makin73 year old male presenting with complaints of palpitations KORY CBC CMP EKG CXR ASA Kayexelate given K= 5.8 <Opal García - Last Filed: 07/19/18 17:00> Disposition Discussed With DrMegan: Sharon Humphrey Comment: Discussed with Dr. Humphrey who will admit to service Doctor Will See Patient In The: Hospital Counseled Patient/Family Regarding: Studies Performed, Diagnosis, Need For Followup - Disposition Disposition Time: 16:10 <Opal García - Last Filed: 07/19/18 17:00> <Taco Guerra DO - Last Filed: 07/20/18 00:25> - Disposition Disposition: HOSPITALIZED Condition: STABLE - Clinical Impression Clinical Impression: Palpitation, Hypertension, Worsening renal function - PA / QUANTITATIVE RESEARCHER / Resident Statement ALTHEA has reviewed & agrees with the documentation as recorded. ALTHEA has examined the patient and agrees with the treatment plan. <Taco Guerra DO - Last Filed: 07/20/18 00:25>
[2018-07-19 16:08] LABS: CALCIUM 9.5 mg/dl (8.6-10.4)
[2018-07-19 16:19] LABS: ALB/GLOB RATIO 1.3 (1.0-2.1); ALBUMIN 4.4 g/dL (3.5-5.0); TROPONIN I 0.017 ng/mL (0.00-0.120)
--- NOTE | 2018-07-19 16:26 | RAD ---
Date of service: 07/19/2018 PROCEDURE: CHEST RADIOGRAPH, 1 VIEW HISTORY: chest pain COMPARISON: 09/30/2017. FINDINGS: LUNGS: The lungs are well inflated and clear. PLEURA: No pneumothorax or pleural effusion. CARDIOVASCULAR: The heart is normal in size. No aortic atherosclerotic calcifications present. OSSEOUS STRUCTURES: Within normal limits for the patient's age. VISUALIZED UPPER ABDOMEN: Normal. OTHER FINDINGS: None. IMPRESSION: No active pulmonary disease.
--- NOTE | 2018-07-19 18:58 | CP.PCM.HP ---
Past Patient History - Tetanus Immunizations Tetanus Immunization: Unknown - Past Medical History & Family History Past Medical History?: Yes - Past Social History Smoking Status: Never Smoked - CARDIAC Hx Hypertension: Yes - PULMONARY Hx Respiratory Disorders: No - NEUROLOGICAL Hx Neurological Disorder: No - HEENT Hx HEENT Problems: Yes Hx Cataracts: Yes (left eye) - RENAL Hx Chronic Kidney Disease: No - ENDOCRINE/METABOLIC Hx Endocrine Disorders: Yes Hx Diabetes Mellitus Type 1: Yes - HEMATOLOGICAL/ONCOLOGICAL Hx Blood Disorders: No - INTEGUMENTARY Hx Dermatological Problems: No - MUSCULOSKELETAL/RHEUMATOLOGICAL Hx Musculoskeletal Disorders: Yes Hx Falls: No Hx Osteoarthritis: Yes - GASTROINTESTINAL Hx Gastrointestinal Disorders: No - GENITOURINARY/GYNECOLOGICAL Hx Genitourinary Disorders: Yes (BPH) Hx Prostate Problems: Yes - PSYCHIATRIC Hx Substance Use: No - SURGICAL HISTORY Hx Surgeries: Yes Hx Cataract Extraction: Yes (LEFT IOL) Other/Comment: PROSTATE BX NEG - ANESTHESIA Hx Anesthesia: Yes Hx Anesthesia Reactions: No Hx Malignant Hyperthermia: No Meds Allergies/Adverse Reactions: Allergies Allergy/AdvReac Type Severity Reaction Status Date / Time No Known Allergies Allergy Verified 07/19/18 14:29 Physical Exam - Constitutional Appears: Well - Head Exam Head Exam: ATRAUMATIC, NORMAL INSPECTION, NORMOCEPHALIC - Eye Exam Eye Exam: EOMI, Normal appearance, PERRL Pupil Exam: NORMAL ACCOMODATION, PERRL - ENT Exam ENT Exam: Mucous Membranes Moist, Normal Exam - Neck Exam Neck exam: Positive for: Normal Inspection - Respiratory Exam Respiratory Exam: Decreased Breath Sounds - Cardiovascular Exam Cardiovascular Exam: REGULAR RHYTHM, +S1, +S2 - GI/Abdominal Exam GI & Abdominal Exam: Diminished Bowel Sounds, Soft - Rectal Exam Rectal Exam: Deferred - Neurological Exam Neurological exam: Oriented x3 Results - Vital Signs Recent Vital Signs: Last Vital Signs Temp 97.8 F 07/19/18 17:53 Pulse 86 07/19/18 17:53 Resp 19 07/19/18 17:53 BP 131/67 07/19/18 17:53 Pulse Ox 96 07/19/18 17:53 - Labs Result Diagrams: 07/19/18 15:35 07/19/18 15:35 Labs: Laboratory Results - last 24 hr 07/19/18 07/19/18 15:35 15:35 WBC 4.2 L RBC 4.69 Hgb 10.5 L Hct 31.6 L MCV 67.4 L MCH 22.3 L MCHC 33.1 RDW 17.6 H Plt Count 192 MPV 9.8 Neut % (Auto) 51.6 Lymph % (Auto) 30.9 Ida % (Auto) 14.5 H Eos % (Auto) 1.3 Baso % (Auto) 1.7 Neut # (Auto) 2.2 Lymph # (Auto) 1.3 Ida # (Auto) 0.6 Eos # (Auto) 0.1 Baso # (Auto) 0.1 Sodium 133 Potassium 5.8 H Chloride 101 Carbon Dioxide 23 Anion Gap 15 BUN 38 H Creatinine 2.4 H Est GFR ( Amer) 32 Est GFR (Non-Af Amer) 27 Random Glucose 100 D Calcium 9.5 Total Bilirubin 0.7 AST 41 ALT 10 L D Alkaline Phosphatase 40 Troponin I 0.0170 NT-Pro-B Natriuret Pep 672 Total Protein 7.8 Albumin 4.4 Globulin 3.4 Albumin/Globulin Ratio 1.3
[2018-07-19] MEDS ORDERED: NIFEdipine 90 mg ER Tab PO SCH (22:00)
[2018-07-19 23:58] LABS: CK-MB 1.32 ng/mL (0.0-3.38)
[2018-07-20 00:36] LABS: TROPONIN I 0.026 ng/mL (0.00-0.120)
[2018-07-20 07:45] VITALS: RESP 20
[2018-07-20 08:20] LABS: CK-MB 0.99 ng/mL (0.0-3.38); TROPONIN I 0.034 ng/mL (0.00-0.120)
[2018-07-20 08:23] LABS: ALB/GLOB RATIO 1.3 (1.0-2.1); ALBUMIN 3.5 g/dL (3.5-5.0); CALCIUM 9.1 mg/dl (8.6-10.4)
[2018-07-20] MEDS ORDERED: Enoxaparin 30 mg Syringe SC SCH (10:00)
[2018-07-20] MEDS ORDERED: FENOFIBRATE 150 MG PO SCH (10:00)
[2018-07-20] MEDS ORDERED: Enoxaparin 40 mg Syringe SC SCH (10:00)
--- NOTE | 2018-07-20 12:51 | CP.PCM.CON ---
History of Present Illness - History of Present Illness History of Present Illness: 73 year old male with pmhx of BPH, HTN, DM, HLD, presenting to ED with complaints of right chest palpitations that awoke him at 1am and persisted throughout the night. and subsided around 7am this morning on their own. Pt reports forceful heart beats, loud enough to keep him up. Denies rapid heart beats, chest pain, nausea, dizziness, SOB. Patient reports new onset palpitations requiring use of monitor in June. Pt reports he was recently told he would need a pacemaker, but does not know why. Denies complaints currently. Cardiac hx: there is documentation of possible hx of SVT with abberancy or VT episodes in past but no tele to review. Patient of Dr. Porras;[facility] and has a [employer] implantable loop monitor PMH: htn, DM, bph, gout, OA, hx of urosepesis psh: Denies FMH: htn Social: denies tobacco, alcohol and illicit drug use. Allergy: NKDA Review of Systems - Review of Systems All systems: reviewed and no additional remarkable complaints except Past Patient History - Tetanus Immunizations Tetanus Immunization: Unknown - Past Medical History & Family History Past Medical History?: Yes - Past Social History Smoking Status: Never Smoked - CARDIAC Hx Hypertension: Yes - PULMONARY Hx Respiratory Disorders: No - NEUROLOGICAL Hx Neurological Disorder: No - HEENT Hx HEENT Problems: Yes Hx Cataracts: Yes (left eye) - RENAL Hx Chronic Kidney Disease: No - ENDOCRINE/METABOLIC Hx Endocrine Disorders: Yes Hx Diabetes Mellitus Type 1: Yes - HEMATOLOGICAL/ONCOLOGICAL Hx Blood Disorders: No - INTEGUMENTARY Hx Dermatological Problems: No - MUSCULOSKELETAL/RHEUMATOLOGICAL Hx Musculoskeletal Disorders: Yes Hx Falls: No Hx Osteoarthritis: Yes - GASTROINTESTINAL Hx Gastrointestinal Disorders: No - GENITOURINARY/GYNECOLOGICAL Hx Genitourinary Disorders: Yes (BPH) Hx Prostate Problems: Yes - PSYCHIATRIC Hx Substance Use: No - SURGICAL HISTORY Hx Surgeries: Yes Hx Cataract Extraction: Yes (LEFT IOL) Other/Comment: PROSTATE BX NEG - ANESTHESIA Hx Anesthesia: Yes Hx Anesthesia Reactions: No Hx Malignant Hyperthermia: No Meds Allergies/Adverse Reactions: Allergies Allergy/AdvReac Type Severity Reaction Status Date / Time No Known Allergies Allergy Verified 07/19/18 14:29 - Medications Medications: Current Medications Allopurinol (Zyloprim) 100 mg PO DAILY [facility] Last Admin: 07/20/18 09:48 Dose: 100 mg Aspirin (Aspirin) 325 mg PO DAILY [facility] Last Admin: 07/20/18 09:48 Dose: 325 mg Clonidine HCl (Catapres) 0.2 mg PO Q8 [facility] Last Admin: 07/20/18 05:15 Dose: 0.2 mg Doxazosin Mesylate (Cardura) 4 mg PO DAILY [facility] Last Admin: 07/20/18 09:49 Dose: 4 mg Enoxaparin Sodium (Lovenox) 30 mg SC DAILY [facility] Last Admin: 07/20/18 09:47 Dose: 30 mg Famotidine (Pepcid) 20 mg PO DAILY [facility] Last Admin: 07/20/18 09:48 Dose: 20 mg Furosemide (Lasix) 20 mg PO DAILY [facility] Last Admin: 07/20/18 09:48 Dose: 20 mg Glipizide (Glucotrol) 10 mg PO DAILY [facility] Last Admin: 07/20/18 09:48 Dose: 10 mg Hydralazine HCl (Apresoline) 100 mg PO BID [facility] Last Admin: 07/20/18 09:48 Dose: 100 mg Lisinopril (Zestril) 20 mg PO DAILY [facility] Last Admin: 07/20/18 09:48 Dose: 20 mg Nifedipine (Procardia Xl) 90 mg PO HS [facility] Last Admin: 07/19/18 21:14 Dose: 90 mg Oxybutynin Chloride (Ditropan Tab) 5 mg PO DAILY [facility] Last Admin: 07/20/18 09:49 Dose: 5 mg Primidone (Mysoline) 50 mg PO TID [facility] Last Admin: 07/20/18 09:49 Dose: 50 mg Rosuvastatin Calcium (Crestor) 10 mg PO [facility] Tamsulosin HCl (Flomax) 0.4 mg PO Q12 [facility] Last Admin: 07/20/18 09:51 Dose: 0.4 mg Physical Exam - Constitutional Appears: No Acute Distress - Head Exam Head Exam: ATRAUMATIC, NORMAL INSPECTION, NORMOCEPHALIC - Eye Exam Eye Exam: EOMI, Normal appearance. absent: Scleral icterus - ENT Exam ENT Exam: Mucous Membranes Moist, Normal Exam - Neck Exam Neck exam: Positive for: Normal Inspection - Respiratory Exam Respiratory Exam: Clear to Auscultation Bilateral, NORMAL BREATHING PATTERN. absent: Rales, Rhonchi, Wheezes - Cardiovascular Exam Cardiovascular Exam: REGULAR RHYTHM, +S1, +S2. absent: JVD, Systolic Murmur - GI/Abdominal Exam GI & Abdominal Exam: Normal Bowel Sounds, Soft. absent: Tenderness - Extremities Exam Extremities exam: Positive for: full ROM, pedal pulses present. Negative for: pedal edema, tenderness - Neurological Exam Neurological exam: Alert, CN II-XII Intact, Normal Gait, Oriented x3 - Psychiatric Exam Psychiatric exam: Normal Affect, Normal Mood - Skin Skin Exam: Intact, Warm Results - Vital Signs Recent Vital Signs: Last Vital Signs Temp 97.9 F 07/20/18 07:43 Pulse 77 07/20/18 08:25 Resp 20 07/20/18 07:43 BP 157/70 H 07/20/18 09:48 Pulse Ox 97 07/20/18 07:43 - Labs Result Diagrams: 07/19/18 15:35 07/20/18 07:45 Labs: Laboratory Results - last 24 hr 07/19/18 07/19/18 07/19/18 15:35 15:35 21:04 WBC 4.2 L RBC 4.69 Hgb 10.5 L Hct 31.6 L MCV 67.4 L MCH 22.3 L MCHC 33.1 RDW 17.6 H Plt Count 192 MPV 9.8 Neut % (Auto) 51.6 Lymph % (Auto) 30.9 Ashley % (Auto) 14.5 H Eos % (Auto) 1.3 Baso % (Auto) 1.7 Neut # (Auto) 2.2 Lymph # (Auto) 1.3 Ashley # (Auto) 0.6 Eos # (Auto) 0.1 Baso # (Auto) 0.1 Sodium 133 Potassium 5.8 H Chloride 101 Carbon Dioxide 23 Anion Gap 15 BUN 38 H Creatinine 2.4 H Est GFR ( Amer) 32 Est GFR (Non-Af Amer) 27 POC Glucose (mg/dL) 199 H Random Glucose 100 D Calcium 9.5 Phosphorus Magnesium Total Bilirubin 0.7 AST 41 ALT 10 L D Alkaline Phosphatase 40 Total Creatine Kinase CK-MB (Mass) Troponin I 0.0170 NT-Pro-B Natriuret Pep 672 Total Protein 7.8 Albumin 4.4 Globulin 3.4 Albumin/Globulin Ratio 1.3 07/19/18 07/20/18 07/20/18 23:33 06:11 07:45 WBC RBC Hgb Hct MCV MCH MCHC RDW Plt Count MPV Neut % (Auto) Lymph % (Auto) Ashley % (Auto) Eos % (Auto) Baso % (Auto) Neut # (Auto) Lymph # (Auto) Ashley # (Auto) Eos # (Auto) Baso # (Auto) Sodium 137 Potassium 4.5 Chloride 104 Carbon Dioxide 26 Anion Gap 12 BUN 36 H Creatinine 2.4 H Est GFR ( Amer) 32 Est GFR (Non-Af Amer) 27 POC Glucose (mg/dL) 120 H Random Glucose 116 H Calcium 9.1 Phosphorus 3.1 Magnesium 2.0 Total Bilirubin 0.2 AST 19 ALT 20 L D Alkaline Phosphatase 37 L Total Creatine Kinase 140 104 CK-MB (Mass) 1.32 0.99 Troponin I 0.0260 0.0340 NT-Pro-B Natriuret Pep Total Protein 6.1 L Albumin 3.5 D Globulin 2.7 Albumin/Globulin Ratio 1.3 07/20/18 10:59 WBC RBC Hgb Hct MCV MCH MCHC RDW Plt Count MPV Neut % (Auto) Lymph % (Auto) Ashley % (Auto) Eos % (Auto) Baso % (Auto) Neut # (Auto) Lymph # (Auto) Ashley # (Auto) Eos # (Auto) Baso # (Auto) Sodium Potassium Chloride Carbon Dioxide Anion Gap BUN Creatinine Est GFR ( Amer) Est GFR (Non-Af Amer) POC Glucose (mg/dL) 122 H Random Glucose Calcium Phosphorus Magnesium Total Bilirubin AST ALT Alkaline Phosphatase Total Creatine Kinase CK-MB (Mass) Troponin I NT-Pro-B Natriuret Pep Total Protein Albumin Globulin Albumin/Globulin Ratio - EKG Data EKG Interpreted by: Myself EKG shows normal: Sinus rhythm Assessment & Plan - Assessment and Plan (Free Text) Assessment: Patient presents with palpitation occuring night prior to admission: No syncope w/u for arrhythmia negative thus far Images and diagnostics directly viewed by me: > EKG: NSR, 1st deg AVB, no acute changes > ECHO 2016: normal LVEF, LVH, diastolic dysfunction, no sig valvular disease > Prior EKG's did not suggest any arrhythmia > Troponin x3 negative for ACS > CKD: creat 2.4 was 1.3 in 2019 > anemia with low MCV HTN: uncontrolled > on clonidine 0.2, hydralazin1 100 BID, zestril 20, procardia 90, STATIN > crestor 10 DM > on oral Rx: stable Cardiac ; I spoke with Dr. Foote patient s covering tug hand who reports normal stress test in june. He has a loop monitor which was interrogated by [employer] today revealing sinus felecia no arrythmias Per. Dr. Foote: patient had an event/holter prior to loop recorder which showed weinkebach rhythm with 3 sec pause hence no beta-sherri given I had discussed patients hospitalization and have advised patient to f/u with them on discharge. Given no acute arrythmia and stable cardiac problems: ok to d/c with f/u with his tug hand. Meds reviewed (home meds) [place] to d/c: no inpatient cardiac w/u or change in meds per cardiac.
[2018-07-20 15:50] VITALS: BP 181/76; TEMP 98; O2SAT 95
[2018-07-20 15:56] VITALS: PULSE 86
--- NOTE | 2018-07-20 18:23 | CP.PCM.PN ---
Objective - Vital Signs/Intake and Output Vital Signs (last 24 hours): Temp Pulse Resp BP Pulse Ox 98.0 F 86 20 181/76 H 95 07/20/18 15:00 07/20/18 15:53 07/20/18 15:00 07/20/18 15:00 07/20/18 15:00 Intake and Output: 07/20/18 07/20/18 06:59 18:59 Intake Total 250 Balance 250 - Medications Medications: Current Medications Allopurinol (Zyloprim) 100 mg PO DAILY [facility] Last Admin: 07/20/18 09:48 Dose: 100 mg Aspirin (Aspirin) 325 mg PO DAILY [facility] Last Admin: 07/20/18 09:48 Dose: 325 mg Clonidine HCl (Catapres) 0.2 mg PO Q8 [facility] Last Admin: 07/20/18 13:52 Dose: 0.2 mg Doxazosin Mesylate (Cardura) 4 mg PO DAILY [facility] Last Admin: 07/20/18 09:49 Dose: 4 mg Enoxaparin Sodium (Lovenox) 30 mg SC DAILY [facility] Last Admin: 07/20/18 09:47 Dose: 30 mg Famotidine (Pepcid) 20 mg PO DAILY [facility] Last Admin: 07/20/18 09:48 Dose: 20 mg Furosemide (Lasix) 20 mg PO DAILY [facility] Last Admin: 07/20/18 09:48 Dose: 20 mg Glipizide (Glucotrol) 10 mg PO DAILY [facility] Last Admin: 07/20/18 09:48 Dose: 10 mg Hydralazine HCl (Apresoline) 100 mg PO BID [facility] Last Admin: 07/20/18 18:15 Dose: 100 mg Lisinopril (Zestril) 20 mg PO DAILY [facility] Last Admin: 07/20/18 09:48 Dose: 20 mg Nifedipine (Procardia Xl) 90 mg PO HS [facility] Last Admin: 07/19/18 21:14 Dose: 90 mg Oxybutynin Chloride (Ditropan Tab) 5 mg PO DAILY [facility] Last Admin: 07/20/18 09:49 Dose: 5 mg Primidone (Mysoline) 50 mg PO TID [facility] Last Admin: 07/20/18 18:14 Dose: 50 mg Rosuvastatin Calcium (Crestor) 10 mg PO HS [facility] Tamsulosin HCl (Flomax) 0.4 mg PO Q12 [facility] Last Admin: 07/20/18 09:51 Dose: 0.4 mg - Labs Labs: 07/19/18 15:35 07/20/18 07:45 Assessment and Plan - Assessment and Plan (Free Text) Assessment: Patient admitted with palpitations, chest pain , seen and examined. Discussed with cardiologyst, seen by [facility] , cleared for discharge.
--- NOTE | 2018-07-20 18:40 | CP.PCM.PN ---
Subjective - Date & Time of Evaluation Date of Evaluation: 07/20/18 Time of Evaluation: 08:50 - Subjective Subjective: patient seen today no nausea no vomiiting no dizziness no fever no diarrhea no sob Objective - Vital Signs/Intake and Output Vital Signs (last 24 hours): Temp Pulse Resp BP Pulse Ox 98.0 F 86 20 181/76 H 95 07/20/18 15:00 07/20/18 15:53 07/20/18 15:00 07/20/18 15:00 07/20/18 15:00 Intake and Output: 07/20/18 07/20/18 06:59 18:59 Intake Total 250 Balance 250 - Medications Medications: Current Medications Allopurinol (Zyloprim) 100 mg PO DAILY [facility] Last Admin: 07/20/18 09:48 Dose: 100 mg Aspirin (Aspirin) 325 mg PO DAILY [facility] Last Admin: 07/20/18 09:48 Dose: 325 mg Clonidine HCl (Catapres) 0.2 mg PO Q8 [facility] Last Admin: 07/20/18 13:52 Dose: 0.2 mg Doxazosin Mesylate (Cardura) 4 mg PO DAILY [facility] Last Admin: 07/20/18 09:49 Dose: 4 mg Enoxaparin Sodium (Lovenox) 30 mg SC DAILY [facility] Last Admin: 07/20/18 09:47 Dose: 30 mg Famotidine (Pepcid) 20 mg PO DAILY [facility] Last Admin: 07/20/18 09:48 Dose: 20 mg Furosemide (Lasix) 20 mg PO DAILY [facility] Last Admin: 07/20/18 09:48 Dose: 20 mg Glipizide (Glucotrol) 10 mg PO DAILY [facility] Last Admin: 07/20/18 09:48 Dose: 10 mg Hydralazine HCl (Apresoline) 100 mg PO BID [facility] Last Admin: 07/20/18 18:15 Dose: 100 mg Lisinopril (Zestril) 20 mg PO DAILY [facility] Last Admin: 07/20/18 09:48 Dose: 20 mg Nifedipine (Procardia Xl) 90 mg PO HS [facility] Last Admin: 07/19/18 21:14 Dose: 90 mg Oxybutynin Chloride (Ditropan Tab) 5 mg PO DAILY [facility] Last Admin: 07/20/18 09:49 Dose: 5 mg Primidone (Mysoline) 50 mg PO TID [facility] Last Admin: 07/20/18 18:14 Dose: 50 mg Rosuvastatin Calcium (Crestor) 10 mg PO HS [facility] Tamsulosin HCl (Flomax) 0.4 mg PO Q12 [facility] Last Admin: 07/20/18 09:51 Dose: 0.4 mg - Labs Labs: 07/19/18 15:35 07/20/18 07:45 - Constitutional Appears: Well - Head Exam Head Exam: ATRAUMATIC, NORMAL INSPECTION, NORMOCEPHALIC - Eye Exam Eye Exam: EOMI, Normal appearance, PERRL Pupil Exam: NORMAL ACCOMODATION, PERRL - ENT Exam ENT Exam: Mucous Membranes Moist, Normal Exam - Neck Exam Neck Exam: Full ROM, Normal Inspection. absent: Lymphadenopathy - Respiratory Exam Respiratory Exam: Decreased Breath Sounds - Cardiovascular Exam Cardiovascular Exam: REGULAR RHYTHM, +S1, +S2 - GI/Abdominal Exam GI & Abdominal Exam: Soft, Diminished Bowel Sounds - Rectal Exam Rectal Exam: Deferred - Neurological Exam Neurological Exam: Oriented x3 Assessment and Plan - Assessment and Plan (Free Text) Plan: medications reviewed apresoline aspirin cardura catapress crestor ditropan tab flomax glucotrol lasix lovenox mysoline pepcid porcardia xl zestril zyloprim
--- NOTE | 2018-07-20 20:32 | CARD ---
APPROVED REPORT Date of service: 07/19/2018 EKG Measurement Heart [id number] <Conclusion> Sinus rhythm with 1st degree AV block Possible Left atrial enlargement Borderline ECG
== END 2018-07-20 18:49 | disposition home or self-care (01) ==
LOC: C.ER 14:16 → C.9E 16:27 → C.5S 17:35
PROVIDERS: ADMIT Internal Medicine Nephrology; ATTEND Internal Medicine Nephrology
DX: R07.89 Other chest pain (principal); I12.9 Hypertensive chronic kidney disease with stage 1 through stage 4 chronic kidney disease, or unspecified chronic kidney disease; N18.9 Chronic kidney disease, unspecified; E78.5 Hyperlipidemia, unspecified; N40.0 Benign prostatic hyperplasia without lower urinary tract symptoms; Z79.4 Long term (current) use of insulin; D64.9 Anemia, unspecified; E11.9 Type 2 diabetes mellitus without complications; R00.2 Palpitations
CPT/HCPCS: 36415; 71045; 80053; 82948; 83735; 83880; 84100; 84484; 85025; 93005; 99285; G0378; J1650